=== PATIENT | female | born 1935 | race Caucasian/White ===

== ENCOUNTER 2017-05-13 08:08 | Inpatient (IN) | payer MEDICARE, OTHER ==
[2017-05-13] MEDS ORDERED: Sodium Chloride 0.9% 1000 ML 1,000 ML IV STA (08:29)
[2017-05-13] MEDS ORDERED: Sodium Chloride 0.9% 1000 ML 1,000 ML ONE (08:32)
--- NOTE | 2017-05-13 08:36 | ERPHSYRPT ---
- History of Present Illness Time Seen by Provider: 05/13/17 08:10 Source: family, EMS Physician History: PATIENT WITH HISTORY OF HYPERTENSION, COPD, HYPONATREMIA, WITH ONSET OF LETHARGY , SLURRED SPEECH AND SLOWED RESPONSE TO VERBAL STIMULI. DENIES HEADACHE, BLURRED VISION, FOCAL NUMBNESS, WEAKNESS IN EXTREMITIES. PATIENT IS SLOW TO RESPOND TO VERBAL STIMULI. DENIES EMESIS, CHEST OR ABDOMINAL PAIN. HAS HISTORY OF IRRITABLE BOWEL WITH CRHONIC DIARRHEA. Timing/Duration: today Severity: moderate Character of Deficits: general (difuse) Deficits: decrease ability to walk Baseline/Normal Cognition: poor alertness Current Cognition: poor alertness Associated Symptoms: weakness Allergies/Adverse Reactions: Sulfa (Sulfonamide Antibiotics) Allergy (Mild, Verified 05/13/17 08:37) sulfamethoxazole [From Bactrim] Allergy (Mild, Verified 05/13/17 08:37) tetracycline Allergy (Mild, Verified 05/13/17 08:37) trimethoprim [From Bactrim] Allergy (Mild, Verified 05/13/17 08:37) amoxicillin Allergy (Verified 05/13/17 08:37) Vomiting azithromycin Allergy (Verified 05/13/17 08:37) UNKWON codeine Allergy (Verified 05/13/17 08:37) UNSURE Home Medications: Atorvastatin Calcium [Lipitor] 10 mg PO UD 07/05/16 [History] Buspirone HCl 5 mg [Buspar 5 mg] 5 mg PO BID 07/05/16 [History] Calcium 600 mg PO DAILY 07/05/16 [History] Nifedipine [Procardia Xl] 60 mg PO DAILY 07/05/16 [History] Alprazolam 0.25 mg [xanAX 0.25 MG] 0.25 mg PO DAILY 05/13/17 [History] Multivitamin [Multivitamins] 1 each PO DAILY 05/13/17 [History] Nitrofurantoin Macrocrystal [Nitrofurantoin] 50 mg PO DAILY 05/13/17 [History] Paroxetine HCl 5 mg PO DAILY 05/13/17 [History] Hx Tetanus, Diphtheria Vaccination/Date Given: Yes Hx Influenza Vaccination/Date Given: Yes Hx Pneumococcal Vaccination/Date Given: Yes - Review of Systems Constitutional: No Fever, No Chills Eyes: No Symptoms Ears, Nose, & Throat: No Symptoms Respiratory: No Symptoms, No Cough, No Dyspnea Cardiac: No Symptoms, No Chest Pain, No Edema, No Syncope Abdominal/Gastrointestinal: No Symptoms, No Abdominal Pain, No Nausea, No Vomiting, No Diarrhea Genitourinary Symptoms: No Symptoms, No Dysuria Musculoskeletal: No Symptoms, No Back Pain, No Neck Pain Skin: No Symptoms, No Rash Neurological: Lethargy, No Dizziness, No Focal Weakness, No Sensory Changes Psychological: No Symptoms Endocrine: No Symptoms All Other Systems: Reviewed and Negative - Past Medical History Pertinent Past Medical History: Yes Neurological History: No Pertinent History ENT History: Cataracts Cardiac History: High Cholesterol, Hypertension Respiratory History: COPD, Other Endocrine Medical History: Other Musculoskeletal History: Arthritis GI Medical History: Diverticulosis, Irritable Bowel History: No Pertinent History Psycho-Social History: Anxiety Female Reproductive Disorders: Abnormal Uterine Bleeding, Other Other Medical History: has had cataracts removed, had partial thyroidectomy in 1965 non cancerous and has not had to take meds since, dx with copd but denies sob hx of smoker, has had colonoscopy had diverticulosis, had partial hysterectomy 1985 for heavy bleeding, has area in lung that Dr. Hogan is monitoring and had PET scan to check that area and an area showed up in colon so doing colonoscopy - Past Surgical History Past Surgical History: Yes Neuro Surgical History: No Pertinent History Cardiac: No Pertinent History Respiratory: No Pertinent History Gastrointestinal: Appendectomy Genitourinary: No Pertinent History Musculoskeletal: No Pertinent History Female Surgical History: Hysterectomy Other Surgical History: partial thyroidectomy 1965 noncancerous and has been on no meds since. bladder tuck 2003, colonoscopy 2007, cataracts removed 2007, vericose veins removed 1969. - Social History Smoking Status: Never smoker Exposure to second hand smoke: No Alcohol Use: None Drug Use: none Patient Lives Alone: No Significant Family History: no pertinent family hx - Female History Hx Now: No - Nursing Vital Signs Nursing Vital Signs: Initial Vital Signs Temperature 97.9 F Temperature Source Oral Pulse Rate 78 Respiratory Rate 16 Blood Pressure [] 143/56 Pain Intensity 0 - Jessica Coma Scale Best Eye Response ([place]): (3) open to voice Best Verbal Response (Jessica): (5) oriented Best Motor Response ([place]): (6) obeys commands Jessica Total: 14 - Physical Exam General Appearance: no apparent distress, alert Eye Exam: bilateral eye: normal inspection, PERRL Ears, Nose, Throat Exam: normal ENT inspection Neck Exam: normal inspection, non-tender, supple Respiratory: normal breath sounds Gastrointestinal: soft, normal bowel sounds, other (NONTENDER, NO PALPABLE MASSES) Back Exam: normal inspection Extremity Exam: normal inspection, normal range of motion Peripheral Pulses: carotid (R): 2+, carotid (L): 2+, femoral (R): 2+, femoral (L ): 2+, dorsalis-pedis (R): 2+, dorsalis-pedis (L): 2+ Mental Status: oriented x 3, cooperative, 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 Exam: normal hearing Coordination/Gait: normal finger to nose Motor/Sensory: no motor deficit, no sensory deficit DTR: bicep (R): 2+, bicep (L): 2+, tricep (R): 2+, tricep (L): 2+, knee (R): 2+ , knee (L): 2+ SpO2 Interpretation: normal SpO2: 96 - Course EKG Interpreted by Me: RATE, Sinus Rhythm, Non-specific ST Changes - Radiology Exams Chest X-ray Interpretation: Discussed w/ radiologist (ADVANCED COPD, NO INFILTRATES ) - CT Exams Head CT Interpretation: Discussed w/radiologist (NO ACUTE INTRACRANIAL BLEED, EVIDENCE OF ACUTE TERRITORIAL INFARCTION, BILATERAL MAXILLARY SINUS DISEASE/ SINUSITIS, WHICH IS PROBABLY CHRONIC, THIS IS A BIT MOR PROMINENT ON THE RIGHT THAN LEFT) Ordered Tests: Active Orders 24 hr Category Date Time Status Up With Assistance ROUTINE Activity 05/13/17 09:37 Ordered Admission/Status Order ROUTINE Care 05/13/17 09:37 Ordered Call Admit Doctor for Orders ON ADMISSION Care 05/13/17 09:38 Ordered Shield Installer STAT Care 05/13/17 08:26 Active Code Status Order ROUTINE Care 05/13/17 09:37 Ordered EKG-ER Only STAT Care 05/13/17 08:26 Active IV Care Q6H Care 05/13/17 09:37 Ordered IV Insertion STAT Care 05/13/17 08:26 Active Neuro Checks Q2H Care 05/13/17 09:37 Ordered Telemetry ROUTINE Care 05/13/17 09:37 Ordered Vital Signs Q4H Care 05/13/17 09:37 Ordered Regular Diet Diet 05/13/17 Lunch Ordered CHEST 1 VIEW (PORTABLE) Stat Exams 05/13/17 08:27 Completed HEAD WITHOUT CONTRAST [CT] Stat Exams 05/13/17 08:32 Completed MRI BRAIN W & W/O CONTRAST [MRI] Stat Exams 05/13/17 09:40 Ordered BLOOD CULTURE Stat Lab 05/13/17 09:10 Received CBC W DIFF Stat Lab 05/13/17 08:41 Completed CMP Stat Lab 05/13/17 08:41 Completed TROPONIN Q3H Lab 05/13/17 08:41 Completed TROPONIN Q3H Lab 05/13/17 11:30 Ordered TROPONIN Q3H Lab 05/13/17 14:30 Ordered TROPONIN Q3H Lab 05/13/17 17:30 Ordered TROPONIN Q3H Lab 05/13/17 20:30 Ordered UA W/ MICROSCOPIC Stat Lab 05/13/17 08:41 Completed Transfer Order Routine Transfer 05/13/17 09:36 Ordered Medication Summary Generic Name Dose Route Start Last Admin Trade Name Freq PRN Reason Stop Dose Admin Acetaminophen 650 mg 05/13/17 09:40 Tylenol 325 Mg PO 06/12/17 09:39 Q4H PRN PRN PAIN AND/OR FEVER Buspirone HCl 5 mg 05/13/17 10:00 Buspar 5 Mg PO 06/12/17 09:59 BID ANIBAL Sodium Chloride 1,000 mls @ 200 mls/hr 05/13/17 08:29 05/13/17 08:35 Sodium Chloride 0.9% 1000 Ml IV 05/13/17 13:28 200 mls/hr .Q5H STA Administration Sodium Chloride 1,000 mls @ 50 mls/hr 05/13/17 09:45 Sodium Chloride 0.9% 1000 Ml IV 06/12/17 09:44 .Q20H ANIBAL Levofloxacin/Dextrose 500 mg in 100 mls @ 100 mls/hr 05/13/17 09:42 Levofloxacin 500mg/100ml D5w IV 05/13/17 10:41 STAT STA Nifedipine 60 mg 05/13/17 10:00 Adalat Cc 30 Mg Tablet PO 06/12/17 09:59 DAILY ANIBAL Ondansetron HCl 4 mg 05/13/17 09:43 Zofran 4 Mg/2 Ml Vial IV 06/12/17 09:42 Q4H PRN PRN NAUSEA Discontinued Medications Generic Name Dose Route Start Last Admin Trade Name Freq PRN Reason Stop Dose Admin Sodium Chloride Confirm 05/13/17 08:32 Sodium Chloride 0.9% 1000 Ml Administered 05/13/17 08:33 Dose 1,000 mls @ .[facility] Lab/Rad Data: Laboratory Result Diagrams 05/13/17 08:41 05/13/17 08:41 Laboratory Results 05/13/17 05/13/17 05/13/17 Range/Units 08:41 08:41 08:41 WBC (4.0-10.5) K/mm3 RBC (4.1-5.4) M/mm3 Hgb (12.0-16.0) gm/dl Hct (35-47) % MCV (78-100) fl MCH (26-32) pg MCHC (32-36) g/dl RDW (11.5-14.0) % Plt Count (150-450) K/mm3 MPV (6-9.5) fl Gran % (36.0-66.0) % Lymphocytes % (24.0-44.0) % Monocytes % (0.0-12.0) % Eosinophils % (0.00-5.0) % Basophils % (0.0-0.4) % Basophils # (0-0.4) Sodium 136 (136-145) mEq/L Potassium 4.0 (3.5-5.1) mEq/L Chloride 100 (98-107) mEq/L Carbon Dioxide 25.9 (21-32) mEq/L Anion Gap 13.8 (5-15) MEQ/L BUN 21 H (9-20) mg/dL Creatinine 0.90 (0.55-1.30) mg/dl Estimated GFR > 60 ML/MIN Glucose 106 (70-110) MG/DL Calcium 9.2 (8.5-10.1) mg/dL Total Bilirubin 0.40 (0.2-1.0) mg/dL AST 20 (15-37) U/L ALT 22 (12-78) U/L Alkaline Phosphatase 67 (46-116) U/L Troponin I < 0.017 (0.000-0.056) ng/ml Serum Total Protein 7.1 (6.4-8.2) gm/dL Albumin 3.6 (3.4-5.0) g/dL Ur Collection Type VOID Urine Color LT.YELLOW (YELLOW) Urine Appearance CLEAR (CLEAR) Urine pH 8.0 (5-6) Ur Specific [place] 1.010 (1.005-1.025) Urine Protein NEGATIVE (Negative) Urine Ketones NEGATIVE (NEGATIVE) Urine Blood 5-10 (0-5) Carlos/ul Urine Nitrite NEGATIVE (NEGATIVE) Urine Bilirubin NEGATIVE (NEGATIVE) Urine Urobilinogen NORMAL (0-1) mg/dL Ur Leukocyte Esterase NEGATIVE (NEGATIVE) Urine Microscopic RBC 0-2 (0-2) /HPF Ur Epithelial Cells RARE (FEW) /HPF Urine Bacteria FEW (NEGATIVE) /HPF Urine Glucose NEGATIVE (NEGATIVE) mg/dL Specimen Received 05/13/17 0840 05/13/17 Range/Units 08:41 WBC 5.3 (4.0-10.5) K/mm3 RBC 4.76 (4.1-5.4) M/mm3 Hgb 12.8 (12.0-16.0) gm/dl Hct 38.5 (35-47) % MCV 80.9 (78-100) fl MCH 26.9 (26-32) pg MCHC 33.2 (32-36) g/dl RDW 14.8 H (11.5-14.0) % Plt Count 230 (150-450) K/mm3 MPV 9.2 (6-9.5) fl Gran % 61.6 (36.0-66.0) % Lymphocytes % 24.7 (24.0-44.0) % Monocytes % 9.3 (0.0-12.0) % Eosinophils % 3.8 (0.00-5.0) % Basophils % 0.6 (0.0-0.4) % Basophils # 0.03 (0-0.4) Sodium (136-145) mEq/L Potassium (3.5-5.1) mEq/L Chloride (98-107) mEq/L Carbon Dioxide (21-32) mEq/L Anion Gap (5-15) MEQ/L BUN (9-20) mg/dL Creatinine (0.55-1.30) mg/dl Estimated GFR ML/MIN Glucose (70-110) MG/DL Calcium (8.5-10.1) mg/dL Total Bilirubin (0.2-1.0) mg/dL AST (15-37) U/L ALT (12-78) U/L Alkaline Phosphatase (46-116) U/L Troponin I (0.000-0.056) ng/ml Serum Total Protein (6.4-8.2) gm/dL Albumin (3.4-5.0) g/dL Ur Collection Type Urine Color (YELLOW) Urine Appearance (CLEAR) Urine pH (5-6) Ur Specific [place] (1.005-1.025) Urine Protein (Negative) Urine Ketones (NEGATIVE) Urine Blood (0-5) Carlos/ul Urine Nitrite (NEGATIVE) Urine Bilirubin (NEGATIVE) Urine Urobilinogen (0-1) mg/dL Ur Leukocyte Esterase (NEGATIVE) Urine Microscopic RBC (0-2) /HPF Ur Epithelial Cells (FEW) /HPF Urine Bacteria (NEGATIVE) /HPF Urine Glucose (NEGATIVE) mg/dL Specimen Received - Progress Progress Note: 05/13/17 09:33 PATIENT GIVEN IV LEVAQUIN 500MG Discussed with Dr.: Alford (DISCUSSED WITH DR ALFORD AT 0920 FOR ADMISSION) - Departure Time of Disposition: 09:45 Departure Disposition: In-patient Admission Clinical Impression: ALTERED MENTAL STATUS, ACUTE MAXILLARY SINUSITIS Condition: Stable Critical Care Time: No Referrals: HUNTER ALFORD [Primary Care Provider] -
[2017-05-13 08:48] LABS: BASOPHIL % 0.6 % (0.0-0.4); Eosinophil % 3.8 % (0.00-5.0); Granulocytes % 61.6 % (36.0-66.0); Lymphocytes % 24.7 % (24.0-44.0); Mean Cell Volume 80.9 fl (78-100); Mean Corpuscular Hemoglobin 26.9 pg (26-32); Mean Platelet Volume 9.2 fl (6-9.5); Monocytes % 9.3 % (0.0-12.0); Platelet Count 230 K/mm3 (150-450); Red Blood Count 4.76 M/mm3 (4.1-5.4); Red Cell Distribution Width 14.8 % (11.5-14.0); White Blood Count 5.3 K/mm3 (4.0-10.5)
[2017-05-13 08:51] LABS: Bilirubin NEGATIVE (NEGATIVE); COMPLETE URINE MICROSCOPIC? YES; Collection Type VOID; Glucose NEGATIVE (NEGATIVE); Leukocyte Esterase NEGATIVE (NEGATIVE)
[2017-05-13 09:07] LABS: ALBUMIN 3.6 g/dL (3.4-5.0); ALKALINE PHOSPHATASE 67 U/L (46-116); ANION GAP 13.8 MEQ/L (5-15); BLOOD UREA NITROGEN 21 mg/dL (9-20); CHLORIDE 100 mEq/L (98-107); Carbon Dioxide 25.9 mEq/L (21-32); Glucose 106 MG/DL (70-110); SGOT/AST 20 U/L (15-37); SGPT/ALT 22 U/L (12-78); SODIUM 136 mEq/L (136-145); Total Protein 7.1 gm/dL (6.4-8.2)
[2017-05-13 09:09] LABS: ADD URINE CULTURE? NO (NO); Bacteria FEW /HPF (NEGATIVE); Epithelial Cells RARE /HPF (FEW)
--- NOTE | 2017-05-13 09:14 | XRAY ---
Exam: CT of the head without IV contrast from 05/13/2017. Comparison: CT of the head without IV contrast from 07/05/2016. Indication: Confusion, slurred speech. Technique: Non-IV contrast axial images were obtained through the brain. Reconstructed coronal and sagittal images were created and reviewed. Findings: Mild generalized global atrophy is again seen, not inappropriate for the patient's age. I see no acute intracranial bleed or abnormal extra-axial fluid collection. Subtle mild bilateral periventricular and subcortical white matter changes are seen suggestive of mild chronic microvascular disease. I see no evidence of an acute territorial infarction. Some atherosclerotic vascular disease is seen within both carotid siphons. The calvarium of the skull appears intact. The mastoid air cells appear normal. Mild lobular soft tissue density is seen within the posterior right maxillary sinus. There is also a new minimal amount of mucosal thickening or even fluid within the posterior left maxillary sinus on axial image #1. Subtle mucosal thickening is seen within the left side of the sphenoid sinus. This latter finding is improved from 07/05/2016. The remainder of the visualized paranasal sinuses is clear. There is mild deviation of the mid aspect of the nasal septum toward the left. Impression: 1. Mild generalized global atrophy and subtle bilateral periventricular and subcortical chronic microvascular disease are again seen representing no significant change from 07/05/2016. 2. No acute intracranial bleed, evidence of acute territorial infarction, or other acute intracranial process is seen. 3. Bilateral maxillary sinus disease/sinusitis, which is probably chronic. This is a bit more prominent on the right than left. Prior significant mucosal thickening within the left side of the sphenoid sinus on 07/05/2016 has decreased significantly.
--- NOTE | 2017-05-13 09:15 | XRAY ---
Exam: AP semi-upright chest film from 05/13/2017. Comparison: Two-view chest from 07/14/2016. Indication: Dyspnea. Findings: EKG leads are is noted in place. The transverse heart size appears normal. There is some mild chronic central bronchial wall thickening within the kae. No vascular congestion is seen. There is hyperinflation of the lungs consistent with COPD. Costochondral calcification is seen bilaterally. I see no infiltrates, pneumothorax, or pleural fluid. No acute osseous process is seen. Impression: 1. Advanced COPD representing no change. 2. Prior focal consolidation behind the heart at the medial left lung base on 07/14/2016 has resolved. Currently, no infiltrates or other acute cardiopulmonary process is seen.
[2017-05-13] MEDS ORDERED: TYLENOL 325 MG PO PRN (09:40)
[2017-05-13] MEDS ORDERED: Levofloxacin 500MG/100ML D5W 500 MG/100 ML BAG IV STA (09:42)
[2017-05-13] MEDS ORDERED: Zofran 4 MG/2 ML VIAL IV PRN (09:43)
[2017-05-13] MEDS: Sodium Chloride 0.9% 1000 ML 1,000 ML IV SCH (10:15)
[2017-05-13] MEDS ORDERED: NORCO 5/325 MG PO PRN (11:38)
[2017-05-13] MEDS ORDERED: PROVENTIL Solution 2.5 MG/0.5 ML IH PRN (11:38)
[2017-05-13] MEDS ORDERED: IBUPROFEN 200 MG PO PRN (11:38)
[2017-05-13] MEDS ORDERED: MOTRIN 200 MG PO PRN (11:42)
--- NOTE | 2017-05-13 12:24 | XRAY ---
Exam: MRI of the brain without and with 9 ML's IV Magnevist contrast from 05/13/2017. Comparison: CT of the head without IV contrast from 05/13/2017. Indication: Confusion, slurred speech. Technique: Multiplanar, multisequence MR imaging of the brain was obtained without and with IV contrast per routine. Findings: The diffusion weighted images reveal no focal areas of restricted diffusion to suggest an acute focal infarct. The lateral and third ventricles are mildly prominent representing no change. There is also prominence of the cortical sulci and basilar cisterns suggesting some mild generalized global atrophy in this octogenarian. Mild scattered areas of increased signal are seen within the periventricular and subcortical white matter on the T2 FLAIR images which I believe reflects chronic small vessel ischemic disease. I see no evidence of acute intracranial bleed or abnormal extra-axial fluid collection. No focal mass effect or midline shift is seen. The flow voids within the major vessels about the [place] as well as the basilar artery appeared grossly unremarkable. The seventh and eighth cranial nerve root complexes appear unremarkable. No significant abnormality of the brainstem is seen. The midline T1-weighted images reveal an unremarkable appearance of the sella. No cerebellar ectopia is seen. I see no enhancing masses on the post-IV contrast T1-weighted images. Some peripheral mucosal thickening is seen within the posterior inferior aspect of both maxillary sinuses, right greater than left. There also appears to be some mild lobular increased signal intensity on the T2-weighted images within the inferior aspect of the right maxillary sinus which probably represents retention cysts. Impression: 1. I see no focal areas of restricted diffusion on the diffusion-weighted images to suggest an acute infarct. 2. No intracranial bleed or enhancing intracranial bleed mass lesion is seen. 3. Mild generalized global atrophy and chronic microvascular ischemia, not inappropriate for the patient's age. 4. Mild chronic bilateral maxillary sinus disease, as discussed above.
[2017-05-13] MEDS: Adalat CC 30 MG TABLET PO SCH (13:51)
[2017-05-13] MEDS: Paxil 20 MG PO SCH (13:51)
[2017-05-13] MEDS: Macrobid 100MG Capsule PO SCH (13:52)
[2017-05-13] MEDS: BUSPAR 5 MG PO SCH ×2 (13:52→22:03)
--- NOTE | 2017-05-13 18:55 | PCM.HP ---
History of Present Illness - Chief Complaint Chief Complaint: Altered Mental Status History of Present Illness: is a 81 year old female pt of mine from [facility] with anxiety who had an episode this morning of decreased responsiveness. She describes it as being very tired and just felt like she needed to lay down, then she was having a hard time making her extremities move and a hard time talking. Her noted she was slow to respond. She asked him to call the nurse and he did ( assisted living). The ambulance was called; as she was being loaded in, her son said something to her and she would not respond to him (she denies that this was willful). In the ER, CT brain was negative aside from some frontal sinusitis. Labs were basically normal, no elevated WBC, and no hyponatremia (which is a somewhat chronic condition for her). She does have some marked anxiety, and takes a small amount of xanax regularly at home (buspar and SSRIs have been tried; I think there was some improvement with the SSRI but we thought it caused the hyponatremia and it was discontinued) . Within the past few years her and her have moved into assisted living , and now they are together all the time and this is stressful; they argue. She states they are doing better in this regard. I know that recently her son had a fairly zaragoza discussion with her about some "OCD tendencies" about doing the laundry. Currently she states she is feeling OK. - Review of Systems Ears, Nose, & Throat: Other (no hearing changes noted) Respiratory: Short Of Breath (intermittently; COPD. wears O2 intermittently at home) Abdominal/Gastrointestinal: Diarrhea (alternates constipation and diarrhea for years), Constipation Genitourinary Symptoms: Other (frequent UTIs; none currently. Takes prophylactic antibiotic) Neurological: Focal Weakness, Speech Changes Psychological: Anxiety All Other Systems: Reviewed and Negative Medications & Allergies Home Medications: Home Medication List Atorvastatin Calcium [Lipitor] 10 mg PO UD 07/05/16 [History Confirmed 05/13/17] Buspirone HCl 5 mg [Buspar 5 mg] 5 mg PO BID 07/05/16 [History Confirmed 05/13/17] Calcium 600 mg PO DAILY 07/05/16 [History Confirmed 05/13/17] Nifedipine [Procardia Xl] 60 mg PO DAILY 07/05/16 [History Confirmed 05/13/17] Albuterol 2.5 mg/0.5 ml [PROVENTIL Solution 2.5 MG/0.5 ML] 2.5 mg IH Q4HPRN PRN 05/13/17 [History Confirmed 05/13/17] Alprazolam 0.25 mg [xanAX 0.25 MG] 0.25 mg PO DAILY 05/13/17 [History Confirmed 05/13/17] Alprazolam 0.25 mg [xanAX 0.25 MG] 0.25 mg PO TID PRN PRN 05/13/17 [ History Confirmed 05/13/17] Aspirin/Acetaminophen/Caffeine [Excedrin Extra Strength Caplet] 1 each PO Q8HPRN PRN 05/13/17 [History Confirmed 05/13/17] Hydrocodone Bit/Acetaminophen [[place] 5-325 Tablet] 0.5 - 1 tab PO DAILY PRN PRN 05/13/17 [History Confirmed 05/13/17] Ibuprofen [Advil] 200 mg PO [id number] PRN 05/13/17 [History Confirmed 05/13/17] Multivitamin [Multivitamins] 1 each PO DAILY 05/13/17 [History Confirmed ] Nitrofurantoin Macrocrystal [Nitrofurantoin] 50 mg PO DAILY 05/13/17 [History Confirmed 05/13/17] Paroxetine HCl 5 mg PO DAILY 05/13/17 [History Confirmed 05/13/17] Allergies/Adverse Reactions: Allergies Allergy/AdvReac Type Severity Reaction Status Date / Time Sulfa (Sulfonamide Allergy Mild Verified 05/13/17 08:37 Antibiotics) sulfamethoxazole Allergy Mild Verified 05/13/17 08:37 [From Bactrim] tetracycline Allergy Mild Verified 05/13/17 08:37 trimethoprim [From Bactrim] Allergy Mild Verified 05/13/17 08:37 amoxicillin Allergy Vomiting Verified 05/13/17 08:37 azithromycin Allergy UNKWON Verified 05/13/17 08:37 codeine Allergy UNSURE Verified 05/13/17 08:37 - Past Medical History Past Medical History: Yes Neurological History: No Pertinent History ENT History: Cataracts Cardiac History: High Cholesterol, Hypertension Respiratory History: COPD, Other Endocrine Medical History: Other Musculoskelatal History: Arthritis GI Medical History: Diverticulosis, Irritable Bowel History: No Pertinent History Pyscho-Social History: Anxiety Reproductive Disorders: Abnormal Uterine Bleeding, Other Comment: has had cataracts removed, had partial thyroidectomy in 1965 non cancerous and has not had to take meds since, dx with copd but denies sob hx of smoker, has had colonoscopy had diverticulosis, had partial hysterectomy 1985 for heavy bleeding, has area in lung that Dr. Hogan is monitoring and had PET scan to check that area and an area showed up in colon so doing colonoscopy - Female History Are you now?: No - Past Surgical History Past Surgical History: Yes Neuro Surgical History: No Pertinent History Cardiac History: No Pertinent History Respiratory Surgery: No Pertinent History GI Surgical History: Appendectomy Genitourinary Surgical Hx: No Pertinent History Musculskeletal Surgical Hx: No Pertinent History Female Surgical History: Hysterectomy Other Surgical History: partial thyroidectomy 1965 noncancerous and has been on no meds since. bladder tuck 2003, colonoscopy 2007, cataracts removed 2007, vericose veins removed 1969. - Social History Smoking Status: Never smoker Exposure to second hand smoke: No Alcohol: None Drug Use: none Significant Family History: no pertinent family hx - Physical Exam Vital Signs: Vital Signs - 24 hr Temp Pulse Resp BP Pulse Ox 05/13/17 16:00 98.2 F 79 18 185/84 92 L 05/13/17 12:55 88 16 95 05/13/17 12:02 98.6 F 80 17 151/72 91 L 05/13/17 09:55 82 151/72 05/13/17 09:44 96 05/13/17 09:15 78 16 143/56 98 05/13/17 08:09 97.9 F 98 H 16 158/57 92 L General Appearance: no apparent distress, anxiety Neurologic Exam: alert, oriented x 3, cooperative, abnormal specialist field engineer II-XII (nl exam aside from decreased CN VIII on the L), other (circular knife machine cutter 5/5 bilat. Proximal and distal muscle strength in LE 5/5 bilat.) Eye Exam: eyes nml inspection Ears, Nose, Throat Exam: moist mucous membranes Neck Exam: normal inspection, non-tender, No mass, No lymphadenopathy Respiratory Exam: crackles/rales (in L base as usual), other (good air exchange) , No rhonchi, No wheezing Cardiovascular Exam: regular rate/rhythm, normal heart sounds, No murmur Gastrointestinal/Abdomen Exam: soft, normal bowel sounds, No tenderness, No distention, No mass, No guarding, No rebound Back Exam: normal inspection Extremity Exam: No pedal edema, No swelling Skin Exam: normal color, warm, dry Results - Labs Lab/Micro Results: Lab Results-Last 24 Hours 05/13/17 05/13/17 05/13/17 Range/Units 11:45 14:45 17:45 Troponin I < 0.017 < 0.017 < 0.017 (0.000-0.056) ng/ml - Radiology Impressions Radiology Exams & Impressions: Radiology Procedures Category Date Time Status MRI BRAIN W & W/O CONTRAST [MRI] Stat Exams 05/13/17 10:14 Completed - Other Procedures and Tests Respiratory Therapy 05/13/17 12:55 Respiratory Nebulizer UD 05/13/17 12:57 Oxygen NASAL CANNULA 2 lpm Assessment/Plan (1) Decreased responsiveness Current Visit: Yes Status: Resolved Assessment & Plan: Unsure the etiology. MRI brain neg aside from age-related changes and sinusitis. She has complained of more fatigue; will do rheumatologic labs including BRITTNEY, RF, RPR, CRP, ESR, C3. Will get neurology consult. Could certainly be conversion disorder with her degree of anxiety. I fear that knowing this would make her more anxious. Code(s): R41.89 - OTH SYMPTOMS AND SIGNS W COGNITIVE FUNCTIONS AND AWARENESS (2) Sinusitis Current Visit: Yes Status: Acute Qualifiers: Sinusitis location: frontal Chronicity: acute Recurrence: non-recurrent Qualified Code(s): J01.10 - Acute frontal sinusitis, unspecified Assessment & Plan: treating with IV levaquin. Code(s): J32.9 - CHRONIC SINUSITIS, UNSPECIFIED (3) Anxiety Current Visit: No Status: Chronic Assessment & Plan: home meds prn Code(s): F41.9 - ANXIETY DISORDER, UNSPECIFIED (4) Constipation Current Visit: No Status: Chronic Assessment & Plan: currently had a hard stool today. Very concerned about her bowel movements. Would just observe. Code(s): K59.00 - CONSTIPATION, UNSPECIFIED (5) Hypertension Current Visit: No Status: Chronic Qualifiers: Hypertension type: essential hypertension Qualified Code(s): I10 - Essential (primary) hypertension Assessment & Plan: will add prn med Code(s): I10 - ESSENTIAL (PRIMARY) HYPERTENSION
[2017-05-13] MEDS ORDERED: APRESOLINE 20 MG/ML INJ IV PRN (19:02)
[2017-05-13] MEDS: xanAX 0.25 MG PO PRN (22:04)
[2017-05-14 08:11] VITALS: PULSE 87
[2017-05-14] MEDS: Adalat CC 30 MG TABLET PO SCH (08:22)
[2017-05-14] MEDS: BUSPAR 5 MG PO SCH (08:22)
[2017-05-14] MEDS: Macrobid 100MG Capsule PO SCH (08:22)
[2017-05-14] MEDS: Paxil 20 MG PO SCH (08:22)
[2017-05-14] MEDS: xanAX 0.25 MG PO PRN (09:47)
[2017-05-14] MEDS: Sodium Chloride 0.9% 1000 ML 1,000 ML IV SCH (09:50)
[2017-05-14] MEDS ORDERED: xanAX 0.25 MG PO SCH ×2 (10:00→22:00)
[2017-05-14] MEDS ORDERED: PAROXETINE HCL 5 MG PO SCH (10:00)
--- NOTE | 2017-05-14 10:39 | PCM.DCORD ---
- Discharge Discharge Date: 05/14/17 Disposition: Home, Self-Care Condition: Stable Prescriptions: Continue Nifedipine [Procardia Xl] 60 mg PO DAILY Calcium 600 mg PO DAILY Buspirone HCl 5 mg [Buspar 5 mg] 5 mg PO BID Atorvastatin Calcium [Lipitor] 10 mg PO UD Alprazolam 0.25 mg [xanAX 0.25 MG] 0.25 mg PO TID PRN PRN PRN Reason: Anxiety Multivitamin [Multivitamins] 1 each PO DAILY Nitrofurantoin Macrocrystal [Nitrofurantoin] 50 mg PO DAILY Ibuprofen [Advil] 200 mg PO [id number] PRN PRN Reason: Mild To Moderate Pain Aspirin/Acetaminophen/Caffeine [Excedrin Extra Strength Caplet] 1 each PO Q8HPRN PRN PRN Reason: Headache Albuterol 2.5 mg/0.5 ml [PROVENTIL Solution 2.5 MG/0.5 ML] 2.5 mg IH Q4HPRN PRN PRN Reason: Shortness Of Breath/Wheezing Alprazolam 0.25 mg [xanAX 0.25 MG] 0.25 mg PO DAILY Changed Paroxetine HCl 10 mg PO DAILY #30 tablet Discontinued Hydrocodone Bit/Acetaminophen [[place] 5-325 Tablet] 0.5 - 1 tab PO DAILY PRN PRN PRN Reason: Moderate To Severe Pain Follow up with: HUNTER POOL [Primary Care Provider] -
--- NOTE | 2017-05-14 11:34 | DS ---
DISCHARGE DIAGNOSES: 1) ALTERED MENTAL STATUS. 2) ANXIETY. 3) LEG PAIN. 4) GENERALIZED WEAKNESS. DISCHARGE PHYSICAL EXAMINATION: VITALS: Temperature current 98.3F, temperature max 98.5F, heart rate 65 to 87, respiratory rate 16 to 18, blood pressure 118 to 151 over 57 to 68. Oxygen saturation 92 to 93% on room air. GENERAL: The patient is lying in bed a pleasant talkative lady. She is alert and oriented x3 but cannot say who the manager nuclear is. Her son, [id number] and are at the bedside. NEURO: Cranial nerves II-XII were intact. Strength is 5/5 in all four extremities. HEART: Regular rate and rhythm. No murmurs, gallops or rubs are appreciated. CHEST: Clear to auscultation bilaterally. No crackles or wheezes. ABDOMEN: Soft, nontender, nondistended with normal bowel sounds. EXTREMITIES: No clubbing, cyanosis or edema. SKIN: Warm, dry and intact. HOSPITAL COURSE: 1) ALTERED MENTAL STATUS: The patient was kept overnight in the hospital. She had a head CT and MRI of her brain done neither of which showed any acute abnormalities. The tele-neurologist was consulted and spoke to me personally and did not feel that she needed any further imaging although as I explained to the family his written report did mention some other studies that could be done but again he did not feel like these were stroke-type symptoms with the generalized weakness. He did also mentioned that she seemed very anxious. This was discussed at length with the family and they agreed to her going home at this time and will continue to work with her anxiety. 2) ANXIETY: She is on Paxil 5 mg p.o. daily. Her family thinks this is a fairly new medication. I have increased this to 10 mg p.o. daily. She also has Xanax ordered as needed and buspirone ordered as needed. Will continue with those and have her follow up with her primary care doctor, Dr. Alford who saw her on the day of admission. 3) LEG PAIN: The etiology of this is uncertain. We did discuss possibly having home health care come in with physical therapy but the thought of having multiple things going on within a day makes her very anxious and so we are going to wait on this time. 4) GENERALIZED WEAKNESS: I have ordered TSH. Her hemoglobin was normal on admission. I will also check vitamin B12 level. I have also ordered 25-hydroxyvitamin D. DISCHARGE MEDICATIONS: She is to resume all of her home medications except they note she does not take the hydrocodone anymore so I discontinued this and I have increased the Paxil from 5 mg to daily to 10 mg daily. FOLLOW UP: Will have follow up with primary care doctor in one to two weeks or sooner if she is having any problems. DISPOSITION: The patient was discharged to home in fair condition.
[2017-05-14 13:17] VITALS: BP 127/58; O2SAT 91
[2017-05-14] MEDS ORDERED: Zocor 10MG PO SCH (20:00)
[2017-05-14] MEDS ORDERED: NON-FORMULARY ITEM (Atorvastatin Calcium [Lipitor] 10 MG) PO SCH (20:00)
[2017-05-15 11:52] LABS: RPR with Quantitation Non Reactive (Non Reactive)
[2017-05-15 16:13] LABS: ANA IgG Titer Not Indicated (Not Indicated)
== END 2017-05-14 12:57 | disposition home or self-care (01) | DRG 948 ==
LOC: ED 08:08 → MED SURG 10:07
PROVIDERS: ADMIT Family Medicine; ATTEND Family Medicine
DX: R41.82 Altered mental status, unspecified (principal); F41.9 Anxiety disorder, unspecified; M79.606 Pain in leg, unspecified; R53.1 Weakness; I10 Essential (primary) hypertension; J44.9 Chronic obstructive pulmonary disease, unspecified; Z99.81 Dependence on supplemental oxygen; Z87.440 Personal history of urinary (tract) infections; R41.89 Other symptoms and signs involving cognitive functions and awareness; J32.9 Chronic sinusitis, unspecified; K59.00 Constipation, unspecified; Z79.899 Other long term (current) drug therapy
CPT/HCPCS: 36415; 70450; 70553; 71010; 80053; 81000; 82306; 82550; 82607; 83921; 84443; 84484; 85025; 85652; 86038; 86140; 86160; 86430; 86592; 87040; 93005; 93041; 94760; 96360; 96361; 99285; J1956; A9270-GY

== ENCOUNTER 2017-07-30 13:07 | Inpatient (IN) | payer MEDICARE, OTHER ==
[2017-07-30 14:46] LABS: Collection Type CLEAN CATCH; Glucose NEGATIVE (NEGATIVE); Leukocyte Esterase TRACE (NEGATIVE)
[2017-07-30 14:47] LABS: ADD URINE CULTURE? YES (NO); Bacteria FEW /HPF (NEGATIVE); Bilirubin NEGATIVE (NEGATIVE); COMPLETE URINE MICROSCOPIC? YES; Epithelial Cells MANY /HPF (FEW)
[2017-07-30] MEDS: Sodium Chloride 0.9% 1000 ML 1,000 ML IV SCH (15:00)
--- NOTE | 2017-07-30 15:01 | XRAY ---
Exam: CT of the head without IV contrast from 07/30/2017. CTDI: 51.17 Comparison: CT of the head without IV contrast from 05/13/2017. Indication: Patient fall with head injury and neck stiffness. Technique: Non-IV contrast axial images were obtained through the brain. Reconstructed coronal and sagittal images were created and reviewed. Findings: The lateral and third ventricles are prominent, likely due to atrophy. No focal mass effect or midline shift is seen. No acute intracranial bleed is seen. Bilateral periventricular and subcortical white matter changes are seen consistent with mild chronic microvascular disease. An acute territorial infarction within a major cerebral or cerebellar artery distribution is not seen. There is prominence of the cortical sulci and basilar cisterns consistent with generalized atrophy. This is similar to the prior study. The calvarium of the skull reveals no fracture. Moderate globular soft tissue density is seen within the posterior aspect of the right maxillary sinus consistent with mucosal thickening and perhaps retention cysts. In addition, I cannot completely exclude the possibility of a minimal amount of fluid at the posterior margin of the maxillary sinuses. These findings are relatively similar to 05/13/2017. There is mild deviation of the nasal septum toward the left. Mild mucosal thickening is seen within the left side of the sphenoid sinus. The mastoid air cells appear unremarkable. Impression: 1. I see no acute intracranial bleed or other acute intracranial process. There is no evidence of an acute or subacute territorial infarction within a major cerebral or cerebellar artery distribution. 2. Generalized atrophy and mild chronic small vessel ischemic disease are seen representing no change from 05/13/2017. 3. Chronic sinus disease/sinusitis, as discussed above. This appears similar to 05/13/2017. 4. No fracture of the calvarium of the skull is seen.
--- NOTE | 2017-07-30 15:21 | XRAY ---
Exam: CT of the cervical spine without IV contrast from 07/30/2017. CTDI: 49.71 Comparison: CT of the cervical spine without IV contrast from 07/05/2016. Indication: Patient fall, injury to head and neck complains of neck stiffness. Technique: Non-IV contrast axial images were obtained through the cervical spine. Reconstructed coronal and sagittal images were created and reviewed. Findings: I see no evidence of acute cervical spine fracture, AP traumatic subluxation, or prevertebral soft tissue swelling. Degenerative changes seen at the preodontoid space. There is moderate multilevel degenerative disc disease at C3-C4, C4-C5, C5-C6, and C6-C7. There is some straightening of the upper cervical spine which may be due to spasm. I see no evidence of jumped facets. A nuchal ligament calcification is seen posterior to the C5 spinous process representing no change. Moderate to marked degenerative changes are also seen within the uncovertebral joints and facet joints. No cervical ribs are seen. Posterior vertebral endplate spurring causes slight compromise upon the AP dimension of the spinal sac at C3-C4 and C5-C6 on the sagittal images. This is unchanged. Scattered neural foraminal narrowing throughout the cervical spine is due to the osteoarthritic spurring. The visualized lung apices reveal minimal scarring representing no change. Impression: 1. No acute cervical spine fracture or AP traumatic subluxation is seen. 2. Moderate to marked multilevel degenerative disc disease and degenerative joint disease are noted throughout the cervical spine representing no significant change from 07/05/2016.
--- NOTE | 2017-07-30 15:23 | ERPHSYRPT ---
- History of Present Illness Time Seen by Provider: 07/30/17 13:39 Source: patient, family (daughter) Exam Limitations: clinical condition (dementia) Patient Subjective Stated Complaint: PT DAUGHTER STATES PT HAS HAD FREQUENT FALLS RECENTLY, WITHIN THE LAST WEEK SPECIFICALLY. PT STATES SHE FELL YESTERDAY AND BRUISED HER FACE AND FOREHEAD. PT STATES SHE FELL TODAY AND DID NOT REALIZE IT. PT LIVES AT [facility]. DAUGHTER STATES THE PT HAS BECOME INCREASINGLY WEAK AND HAS TROUBLE WITH MOTOR SKILLS. REPORTS SHE CAN FOLLOW SIMPLE COMMANDS BUT HAS ISSUES WITH INDEPENDENT DECISION MAKING AND COORDINATION. REPORTS PT HAS SEEN DR. POOL AND DR. PANIAGUA THIS WEEK FOR THE SAME ISSUES. DAUGHTER STATES DR. PANIAGUA SPOKE WITH THEM ABOUT HER BP DROPPING WHEN STANDING. DAUGHTER REPORTS SHE IS ALSO FINISHING UP ABX FOR A UTI. PT DENIES PAIN. Triage Nursing Assessment: PT IS ALERT TO PERSON AND PLACE, PLEASANT AND TALKATIVE WITH STAFF. PUPILS ARE PERRL. WALKED TO TREATMENT ROOM WITH SHUFFLED GAIT. RESPS ARE EASY AND NON LABORED, RADIAL PULSES ARE STRONG AND EQUAL, SLIGHT SWELLING NOTED TO THE BILAT LOWER EXTREMITIES. PEDAL PULSES STRONG AND EQUAL. BRUISING AND SMALL HEMATOMA NOTED TO THE BRIDGE OF THE NOSE. SCATTERED BRUISING TO THE FOREHEAD, LIPS AND CHIN. BRUISING ALSO NOTED TO THE BILAT KNEES WELL THE LEFT THIGH/HIP. ALL SKIN IS INTACT. SENSATION IS INTACT TO ALL EXTREMITIES, DENIES ANY NUMBNESS OR TINGLING. Physician History: patient has been falling at assisted living on a daily basis for week; increased weakness, increased dementia; hx of UTI being treated; bruises to knees and face; ? LOC; patient doesnt know; Occurred: this morning (again), yesterday (also), last week (frequently) Reason for Fall: unknown Injuries/Pain Location: head, face, neck, lower extremity (bilateral knees) Loss of Consciousness: unsure Quality: aching Severity of Pain-Max: moderate Severity of Pain-Current: mild Modifying Factors: Improves With: cold therapy, immobilization (helps), movement (aggravates) Associated Symptoms (Fall): confusion, extremity injury (knees), trouble walking Allergies/Adverse Reactions: Sulfa (Sulfonamide Antibiotics) Allergy (Mild, Verified 07/30/17 13:34) sulfamethoxazole [From Bactrim] Allergy (Mild, Verified 07/30/17 13:34) tetracycline Allergy (Mild, Verified 07/30/17 13:34) trimethoprim [From Bactrim] Allergy (Mild, Verified 07/30/17 13:34) amoxicillin Allergy (Verified 07/30/17 13:34) Vomiting azithromycin Allergy (Verified 07/30/17 13:34) UNKWON codeine Allergy (Verified 07/30/17 13:34) UNSURE Home Medications: Acamprosate Calcium 333 mg PO DAILY 07/30/17 [History] Albuterol/Ipratropium 3ml Neb* [DUONEB 0.5-3 MG/3 ml Neb] 3 ml IH Q4-6HPRN PRN 07/30/17 [History] Alprazolam 0.25 mg [xanAX 0.25 MG] 0.25 mg PO DAILY 07/30/17 [History] Cefaclor [Ceclor] 500 mg PO DAILY 07/30/17 [History] Docusate Sodium 100 mg [Colace 100 MG] 100 mg PO DAILY 07/30/17 [History] Hydrocortisone Acetate [Micort-Hc] 4 gm TP DAILY 07/30/17 [History] L. Acidophilus/Pectin, [place] [Acidophilus Probiotic Capsule] 1 each PO DAILY [History] Midodrine HCl 2.5 mg PO DAILY 07/30/17 [History] Paroxetine HCl [Paxil] 10 mg PO DAILY 07/30/17 [History] Hx Tetanus, Diphtheria Vaccination/Date Given: Yes Hx Influenza Vaccination/Date Given: No Hx Pneumococcal Vaccination/Date Given: Yes Immunizations Up to Date: Yes - Review of Systems Constitutional: Fatigue, Weight Loss, No Fever Eyes: No Symptoms Ears, Nose, & Throat: No Ear Pain, No Tinnitus, No Epistaxis, No Throat Pain Respiratory: No Cough, No Dyspnea, No Wheezing Cardiac: No Chest Pain, No Edema, No Orthopnea Abdominal/Gastrointestinal: No Abdominal Pain, No Nausea, No Vomiting, No Diarrhea Genitourinary Symptoms: No Dysuria, No Frequency, No Hematuria, No Hesitancy, No Vaginal Bleeding Musculoskeletal: Fall (from standing), Injury (head, face; knees), Joint Pain ( knees) Skin: Other (bruises various ages) Neurological: Other (dementia), No Focal Weakness, No Headache, No Paralysis, No Seizure, No Sensory Changes Psychological: No Symptoms Endocrine: No Symptoms Hematologic/Lymphatic: Anemia, Easy Bruising Immunological/Allergic: No Symptoms - Past Medical History Pertinent Past Medical History: Yes Neurological History: No Pertinent History ENT History: Cataracts Cardiac History: High Cholesterol, Hypertension Respiratory History: COPD, Other Endocrine Medical History: Other Musculoskeletal History: Arthritis GI Medical History: Diverticulosis, Irritable Bowel History: No Pertinent History Psycho-Social History: Anxiety Female Reproductive Disorders: Abnormal Uterine Bleeding, Other Other Medical History: has had cataracts removed, had partial thyroidectomy in 1965 non cancerous and has not had to take meds since, dx with copd but denies sob hx of smoker, has had colonoscopy had diverticulosis, had partial hysterectomy 1985 for heavy bleeding, has area in lung that Dr. Hogan is monitoring and had PET scan to check that area and an area showed up in colon so doing colonoscopy - Past Surgical History Past Surgical History: Yes Neuro Surgical History: No Pertinent History Cardiac: No Pertinent History Respiratory: No Pertinent History Gastrointestinal: Appendectomy Genitourinary: No Pertinent History Musculoskeletal: No Pertinent History Female Surgical History: Hysterectomy Other Surgical History: partial thyroidectomy 1965 noncancerous and has been on no meds since. bladder tuck 2003, colonoscopy 2007, cataracts removed 2007, vericose veins removed 1969. - Social History Smoking Status: Never smoker Exposure to second hand smoke: No Alcohol Use: None Drug Use: none Patient Lives Alone: No Significant Family History: no pertinent family hx - Female History Hx Now: No - Nursing Vital Signs Nursing Vital Signs: Initial Vital Signs Temperature 98.4 F 07/30/17 13:10 Pulse Rate 85 07/30/17 13:10 Respiratory Rate 18 07/30/17 13:10 Blood Pressure 187/92 07/30/17 13:10 O2 Sat by Pulse Oximetry 95 07/30/17 13:10 Pain Scale Pain Intensity 0 - [place] Com[place] Score Best Eye Response (Como): (4) open spontaneously Best Verbal Response ([place]): (5) oriented Best Motor Response ([place]): (6) obeys commands Jessica Total: 15 - Physical Exam General Appearance: mild distress, alert, thin Head Injury: contusions (face and forehead and nose), ecchymosis (forehead), lacerations (nasal bridge- 1 cm ), No active bleeding, No Valencia's Sign, No raccoon eyes Eye Exam: PERRL/EOMI, eyes nml inspection, other (fundi benign), No photophobia ENT Exam: airway nml, hearing grossly normal, other (tender nasal bridge; no epistaxis), No dental injury, No midface instability, No hemotympanum, No clotted nasal blood, No malocclusion, No oral injury Neck Exam: trachea midline, normal alignment, normal inspection, limited range of motion, stiff neck, No full range of motion, No focal neuro deficit, No paraspinous muscle tender, No pain on movement of neck, No tenderness, No meningismus, No carotid bruit, No JVD, No subcutaneous emphysema Respiratory/Chest Exam: normal breath sounds, No chest tenderness, No respiratory distress, No ecchymosis, No crepitus, No rhonchi, No wheezing, No subcutaneous emphysema, No palpable fracture Cardiovascular Exam: normal heart sounds, regular rate/rhythm, murmur (1/6 JANETH) , normal peripheral pulses, No edema, No JVD Gastrointestinal Exam: soft, normal bowel sounds, No tenderness, No guarding, No rebound, No organomegaly Rectal Exam: deferred Back Exam: normal inspection, normal range of motion, No CVA tenderness, No vertebral tenderness, No rash Extremity Exam: normal range of motion, capillary refill <3 sec, pelvis stable, contusions (bilateral knees), bony point tenderness (anterior knees), pain with movement (knees), No normal inspection (bilateral tender swelling anterior knees ; stable ; FROM wiht pain), No calf tenderness, No lacerations, No paralysis, No hip tenderness, No pedal edema Peripheral Pulses: carotid (R): 4+, carotid (L): 4+, femoral (R): 4+, femoral (L ): 4+, dorsalis-pedis (R): 3+, dorsalis-pedis (L): 3+ Neurologic Exam: alert, cooperative, medical art therapist II-XII nml as tested, normal mood/ affect, nml cerebellar function, sensation nml, No oriented x 3 (self and place ok), No nml station & gait (unsteady and weak) Skin Exam: normal color, warm, dry, ecchymosis, No rash SpO2 Interpretation: normal SpO2: 95 Oxygen Delivery: Room Air - Course Nursing assessment & vital signs reviewed: Yes EKG Interpreted by Me: RATE (77), Sinus Rhythm, NORMAL AXIS, NORMAL INTERVALS, NORMAL QRS, Non-specific ST Changes, Other (unchanged from 05-13-17) Rhythm Strip: Rate (76), Normal Sinus Rhythm - Radiology Exams Left Knee X-ray Interpretation: Interpreted by me, Negative, No Fracture, Other (djd) Right Knee X-ray Interpretation: Interpreted by me, Negative, No Fracture - CT Exams Head CT Interpretation: Negative, Tele-radiologist Report, Other (atrophy) Cervical Spine CT Interpretation: Tele-radiologist Report, DJD (no fracture) Ordered Tests: Active Orders 24 hr Category Date Time Status Bedrest ROUTINE Activity 07/30/17 16:20 Ordered Accucheck STAT Care 07/30/17 13:49 Active Admission/Status Order ROUTINE Care 07/30/17 16:18 Ordered Call Admit Doctor for Orders ON ADMISSION Care 07/30/17 16:19 Ordered Blasting Miner STAT Care 07/30/17 13:49 Active Code Status Order ROUTINE Care 07/30/17 16:18 Ordered Cold Application STAT Care 07/30/17 13:49 Active EKG-ER Only STAT Care 07/30/17 13:49 Active Fall Protocol ROUTINE Care 07/30/17 16:20 Ordered IV Care Q6H Care 07/30/17 16:18 Ordered IV Insertion STAT Care 07/30/17 13:49 Active Neuro Checks Q6H Care 07/30/17 16:18 Ordered Orthostatic Vital Signs STAT Care 07/30/17 13:51 Active Telemetry ROUTINE Care 07/30/17 16:18 Ordered Vital Signs Q6H Care 07/30/17 16:18 Ordered Weight,Daily 0600 Care 07/30/17 16:18 Ordered Regular Diet Diet 07/30/17 Dinner Ordered CERVICAL SPINE WO CONTRAST [CT] Stat Exams 07/30/17 13:49 Completed HEAD WITHOUT CONTRAST [CT] Stat Exams 07/30/17 13:49 Completed KNEE (3 VIEWS) Routine Exams 07/30/17 Completed KNEE (3 VIEWS) Stat Exams 07/30/17 13:51 Completed BMP Stat Lab 07/30/17 14:45 Completed CBC W DIFF Stat Lab 07/30/17 14:45 Completed CULTURE,URINE Stat Lab 07/30/17 14:30 Received PROTIME WITH INR Stat Lab 07/30/17 14:45 Completed UA W/ MICROSCOPIC Stat Lab 07/30/17 14:30 Completed Transfer Order Routine Transfer 07/30/17 Ordered Medication Summary Generic Name Dose Route Start Last Admin Trade Name Tami PRN Reason Stop Dose Admin Sodium Chloride 1,000 mls @ 50 mls/hr 07/30/17 14:00 07/30/17 15:00 Sodium Chloride 0.9% 1000 Ml IV 08/29/17 13:59 50 mls/hr .Q20H ANIBAL Administration Sodium Chloride 1,000 mls @ 250 mls/hr 07/30/17 16:00 Sodium Chloride 0.9% 1000 Ml IV 08/29/17 15:59 .Q4H ANIBAL Lab/Rad Data: Laboratory Result Diagrams 07/30/17 14:45 07/30/17 14:45 Laboratory Results 07/30/17 07/30/17 07/30/17 Range/Units 14:45 14:45 14:45 WBC 6.5 (4.0-10.5) K/mm3 RBC 4.47 (4.1-5.4) M/mm3 Hgb 12.1 (12.0-16.0) gm/dl Hct 37.3 (35-47) % MCV 83.4 (78-100) fl MCH 27.1 (26-32) pg MCHC 32.4 (32-36) g/dl RDW 15.1 H (11.5-14.0) % Plt Count 281 (150-450) K/mm3 MPV 10.1 H (6-9.5) fl Gran % 68.9 H (36.0-66.0) % Lymphocytes % 18.7 L (24.0-44.0) % Monocytes % 7.6 (0.0-12.0) % Eosinophils % 4.2 (0.00-5.0) % Basophils % 0.6 (0.0-0.4) % Basophils # 0.04 (0-0.4) INR 1.01 (0.8-3.0) Sodium 141 (136-145) mEq/L Potassium 4.3 (3.5-5.1) mEq/L Chloride 106 (98-107) mEq/L Carbon Dioxide 26.1 (21-32) mEq/L Anion Gap 13.2 (5-15) MEQ/L BUN 35 H (9-20) mg/dL Creatinine 0.82 (0.55-1.30) mg/dl Estimated GFR > 60 ML/MIN Glucose 92 (70-110) MG/DL Calcium 9.5 (8.5-10.1) mg/dL Ur Collection Type Urine Color (YELLOW) Urine Appearance (CLEAR) Urine pH (5-6) Ur Specific [place] (1.005-1.025) Urine Protein (Negative) Urine Ketones (NEGATIVE) Urine Blood (0-5) Carlos/ul Urine Nitrite (NEGATIVE) Urine Bilirubin (NEGATIVE) Urine Urobilinogen (0-1) mg/dL Ur Leukocyte Esterase (NEGATIVE) Urine Microscopic RBC (0-2) /HPF Urine Microscopic WBC (0-5) /HPF Ur Epithelial Cells (FEW) /HPF Urine Bacteria (NEGATIVE) /HPF Urine Glucose (NEGATIVE) mg/dL Specimen Received 07/30/17 Range/Units 14:30 WBC (4.0-10.5) K/mm3 RBC (4.1-5.4) M/mm3 Hgb (12.0-16.0) gm/dl Hct (35-47) % MCV (78-100) fl MCH (26-32) pg MCHC (32-36) g/dl RDW (11.5-14.0) % Plt Count (150-450) K/mm3 MPV (6-9.5) fl Gran % (36.0-66.0) % Lymphocytes % (24.0-44.0) % Monocytes % (0.0-12.0) % Eosinophils % (0.00-5.0) % Basophils % (0.0-0.4) % Basophils # (0-0.4) INR (0.8-3.0) Sodium (136-145) mEq/L Potassium (3.5-5.1) mEq/L Chloride (98-107) mEq/L Carbon Dioxide (21-32) mEq/L Anion Gap (5-15) MEQ/L BUN (9-20) mg/dL Creatinine (0.55-1.30) mg/dl Estimated GFR ML/MIN Glucose (70-110) MG/DL Calcium (8.5-10.1) mg/dL Ur Collection Type CLEAN CATCH Urine Color YELLOW (YELLOW) Urine Appearance HAZY (CLEAR) Urine pH 8.0 (5-6) Ur Specific [place] 1.010 (1.005-1.025) Urine Protein TRACE (Negative) Urine Ketones TRACE (NEGATIVE) Urine Blood 5-10 (0-5) Carlos/ul Urine Nitrite NEGATIVE (NEGATIVE) Urine Bilirubin NEGATIVE (NEGATIVE) Urine Urobilinogen NORMAL (0-1) mg/dL Ur Leukocyte Esterase TRACE (NEGATIVE) Urine Microscopic RBC 2-5 (0-2) /HPF Urine Microscopic WBC 2-5 (0-5) /HPF Ur Epithelial Cells MANY (FEW) /HPF Urine Bacteria FEW (NEGATIVE) /HPF Urine Glucose NEGATIVE (NEGATIVE) mg/dL Specimen Received 07/30/17 1430 reviewedreviewed - Progress Progress: unchanged, re-examined (after ct) Progress Note: 07/30/17 15:[address] head and neck - nad; DJD; cbc-ok; U/A trace leuk, ph 8.0 spec gr 1010 ; tr prot- 5-10 rbc, 2-5 wbc; few bact; OSVS show significant drop to hypotension upright- unable to stand; will hydrate and monitor; EKG ok; other labs pending; knee xr ok Discussed with : Rocío (called and discussed admission) Will see patient in: hospital (full admit) Counseled pt/family regarding: lab results, diagnosis, need for follow-up, rad results - Departure Time of Disposition: 16:21 Departure Disposition: In-patient Admission Clinical Impression: Weakness, Orthostatic hypotension, Head injury, Dementia, contusion knees Condition: Serious Critical Care Time: No Critical Care Time(excluding separately billable procedures): 30-74 minutes Referrals: HUNTER POOL [Primary Care Provider] - Instructions: Contusion, Prevent Falls
[2017-07-30 15:43] LABS: BASOPHIL % 0.6 % (0.0-0.4); Eosinophil % 4.2 % (0.00-5.0); Granulocytes % 68.9 % (36.0-66.0); Lymphocytes % 18.7 % (24.0-44.0); Mean Cell Volume 83.4 fl (78-100); Mean Corpuscular Hemoglobin 27.1 pg (26-32); Mean Platelet Volume 10.1 fl (6-9.5); Monocytes % 7.6 % (0.0-12.0); Platelet Count 281 K/mm3 (150-450); Red Blood Count 4.47 M/mm3 (4.1-5.4); Red Cell Distribution Width 15.1 % (11.5-14.0); White Blood Count 6.5 K/mm3 (4.0-10.5)
[2017-07-30 15:54] LABS: INR 1.01 (0.8-3.0); PROTIME 11.2 SECONDS (9.95-12.35)
[2017-07-30 15:56] LABS: ANION GAP 13.2 MEQ/L (5-15); BLOOD UREA NITROGEN 35 mg/dL (9-20); CHLORIDE 106 mEq/L (98-107); Carbon Dioxide 26.1 mEq/L (21-32); Glucose 92 MG/DL (70-110); SODIUM 141 mEq/L (136-145)
--- NOTE | 2017-07-30 15:57 | XRAY ---
Exam: 3 views of the left knee from 07/30/2017. Comparison: None. Indication: Fall, complains of bilateral knee pain. Findings: AP, oblique, and crosstable lateral views of the left knee were obtained. The left knee is mildly flexed. I see no acute fracture, dislocation, or suprapatellar effusion. There appears to be some mild narrowing of the medial compartment of left knee joint space. There is minimal osteophyte formation at the medial margin of the left knee joint. I believe there is also moderate narrowing of the patellofemoral joint with small posterior marginal patellar spurring. There is a 2 mm in diameter round calcification anterior to the left knee joint on the lateral radiograph. Impression: 1. No acute fracture, dislocation, or suprapatellar effusion of the left knee is seen. 2. Bicompartmental osteoarthritis of the left knee joint involving the medial compartment and the patellofemoral joint.
[2017-07-30 15:59] LABS: Potassium 4.3 mEq/L (3.5-5.1)
[2017-07-30] MEDS ORDERED: Sodium Chloride 0.9% 1000 ML 1,000 ML IV SCH ×2 (16:00→16:30)
--- NOTE | 2017-07-30 16:02 | XRAY ---
Exam: 3 views of the right knee from 07/30/2017. Comparison: None. Indication: Fall, complains of bilateral knee pain. Findings: AP, oblique, and crosstable lateral films of the right knee were obtained. I see no acute fracture, dislocation, or suprapatellar effusion. The right knee is slightly flexed. I believe there is mild narrowing of the medial compartment of the right knee joint space with some associated minimal osteophyte formation. Mild hypertrophic change of the tibial eminences is seen. I also note moderate narrowing of the patellofemoral joint on the lateral radiograph with mild spurring at the anterior superior margin of the right patella as well as the upper and lower posterior margins of the right patella. No other focal bone lesion is seen. Impression: 1. No acute right knee fracture, dislocation, or suprapatellar joint effusion is seen. 2. Bicompartmental osteoarthritis of the right knee is seen, as described above.
[2017-07-30] MEDS ORDERED: xanAX 0.25 MG PO PRN (21:41)
[2017-07-30] MEDS ORDERED: MOTRIN 200 MG PO PRN (21:44)
[2017-07-30] MEDS ORDERED: TYLENOL 325 MG PO PRN (21:50)
[2017-07-30] MEDS ORDERED: BUSPAR 5 MG PO ONE (22:00)
[2017-07-30] MEDS ORDERED: PROAMATINE 5 MG PO ONE (22:00)
[2017-07-30] MEDS ORDERED: ROCEPHIN 1 Gm-D5w 50 ml Bag** 1 G/50 ML IVPB IV SCH (22:00)
[2017-07-31] MEDS ORDERED: [UNRECOGNIZED DRUG - OTHER] PO PRN (07:19)
[2017-07-31] MEDS ORDERED: CAFFEINE PO PRN (07:19)
[2017-07-31] MEDS ORDERED: ACETAMINOPHEN PO PRN (07:19)
[2017-07-31] MEDS ORDERED: ASPIRIN PO PRN (07:19)
[2017-07-31] MEDS ORDERED: DUONEB 0.5-3 MG/3 ml Neb IH PRN (07:19)
[2017-07-31] MEDS ORDERED: MEDICATION INTERVENTION MC PRN (07:27)
[2017-07-31] MEDS ORDERED: xanAX 0.25 MG PO PRN (07:30)
--- NOTE | 2017-07-31 08:35 | PCM.HP ---
History of Present Illness - Chief Complaint Chief Complaint: orthostatic hypotension- can't walk or stand History of Present Illness: is a 81 year old female pt from [facility] with mild-moderate dementia who came in yesterday from home. She was not able to move her extremities well, she states, "nothing was working." Her daughter had called the office and we advised taking pt to ER. The only abnormality found in ER was her orthostatic hypotension, which she has been struggling with for the past several months. She saw Dr. Olivier in consultation 2d ago and has been placed on midodrine. This morning she is slightly tearful, particularly when she talks about her . She is oriented to place and time but is somewhat tangential. - Review of Systems All Other Systems: Unable due to dementia Medications & Allergies Home Medications: Home Medication List Albuterol/Ipratropium 3ml Neb* [DUONEB 0.5-3 MG/3 ml Neb] 3 ml IH Q4-6HPRN PRN 07/30/17 [History Confirmed 07/30/17] Alprazolam 0.25 mg [xanAX 0.25 MG] 0.25 mg PO BID PRN PRN 07/30/17 [ History Confirmed 07/30/17] Aspirin/Acetaminophen/Caffeine [Excedrin Extra Strength Caplet] 1 each PO Q8H PRN PRN 07/30/17 [History Confirmed 07/30/17] Buspirone HCl 5 mg [Buspar 5 mg] 5 mg PO BID 07/30/17 [History Confirmed 07/30/17] Calcium Carbonate/Vitamin D3 [Calcium 600 + Vit D Tablet] 1 each PO DAILY [History Confirmed 07/30/17] Cefaclor [Ceclor] 500 mg PO TID 07/30/17 [History Confirmed 07/30/17] Docusate Sodium 100 mg [Colace 100 MG] 100 mg PO DAILY PRN PRN 07/30/17 [ History Confirmed 07/30/17] Ibuprofen [Advil] 200 mg PO Q12H PRN PRN 07/30/17 [History Confirmed 07/30/17] L. Acidophilus/Pectin, [place] [Acidophilus Probiotic Capsule] 1 each PO DAILY [History Confirmed 07/30/17] Midodrine HCl 2.5 mg PO BID 07/30/17 [History Confirmed 07/30/17] Multivitamin [Daily Multivitamin] 1 each PO DAILY 07/30/17 [History Confirmed ] Paroxetine HCl [Paxil] 10 mg PO DAILY 07/30/17 [History Confirmed 07/30/17] Allergies/Adverse Reactions: Allergies Allergy/AdvReac Type Severity Reaction Status Date / Time Sulfa (Sulfonamide Allergy Mild Verified 07/30/17 13:34 Antibiotics) sulfamethoxazole Allergy Mild Verified 07/30/17 13:34 [From Bactrim] tetracycline Allergy Mild Verified 07/30/17 13:34 trimethoprim [From Bactrim] Allergy Mild Verified 07/30/17 13:34 amoxicillin Allergy Vomiting Verified 07/30/17 13:34 azithromycin Allergy UNKWON Verified 07/30/17 13:34 codeine Allergy UNSURE Verified 07/30/17 13:34 - Past Medical History Past Medical History: Yes Neurological History: No Pertinent History ENT History: Cataracts Cardiac History: High Cholesterol, Hypertension Respiratory History: COPD, Other Endocrine Medical History: Other Musculoskelatal History: Arthritis GI Medical History: Diverticulosis, Irritable Bowel History: No Pertinent History Pyscho-Social History: Anxiety Reproductive Disorders: Abnormal Uterine Bleeding, Other Comment: has had cataracts removed, had partial thyroidectomy in 1965 non cancerous and has not had to take meds since, dx with copd but denies sob hx of smoker, has had colonoscopy had diverticulosis, had partial hysterectomy 1985 for heavy bleeding, has area in lung that Dr. Hogan is monitoring and had PET scan to check that area and an area showed up in colon so doing colonoscopy - Female History Are you now?: No - Past Surgical History Past Surgical History: Yes Neuro Surgical History: No Pertinent History Cardiac History: No Pertinent History Respiratory Surgery: No Pertinent History GI Surgical History: Appendectomy Genitourinary Surgical Hx: No Pertinent History Musculskeletal Surgical Hx: No Pertinent History Female Surgical History: Hysterectomy Other Surgical History: partial thyroidectomy 1965 noncancerous and has been on no meds since. bladder tuck 2003, colonoscopy 2007, cataracts removed 2007, vericose veins removed 1969. - Social History Smoking Status: Former smoker Exposure to second hand smoke: No Alcohol: None Drug Use: none Significant Family History: no pertinent family hx - Physical Exam Vital Signs: Vital Signs - 24 hr Temp Pulse Resp BP Pulse Ox 07/31/17 07:16 98.0 F 59 L 16 149/65 95 07/31/17 04:00 97.9 F 67 16 115/56 95 07/31/17 00:00 98.0 F 82 17 132/62 94 L 07/30/17 20:46 98.2 F 77 16 164/79 94 L 07/30/17 17:44 97.0 F 78 20 158/73 95 07/30/17 17:33 97.0 F 78 158/73 07/30/17 16:47 75 20 159/72 95 07/30/17 16:46 97.0 F 78 16 158/73 95 07/30/17 16:22 95 07/30/17 16:22 83 20 154/75 98 07/30/17 16:18 97.0 F 78 16 158/73 95 07/30/17 15:41 82 18 166/85 98 07/30/17 13:10 98.4 F 85 18 187/92 95 General Appearance: no apparent distress, alert Neurologic Exam: oriented x 3, cooperative, rf technician II-XII nml as tested, other ( 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 5/5 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) Eye Exam: eyes nml inspection Neck Exam: normal inspection, non-tender, No lymphadenopathy Respiratory Exam: normal breath sounds, No crackles/rales, No rhonchi, No wheezing Cardiovascular Exam: regular rate/rhythm, normal heart sounds, No murmur Gastrointestinal/Abdomen Exam: soft, normal bowel sounds, No tenderness, No distention, No mass Back Exam: normal inspection Extremity Exam: normal inspection, No pedal edema, No swelling Skin Exam: normal color, warm, dry Assessment/Plan (1) Weakness Current Visit: Yes Status: Acute Assessment & Plan: I suspect this may be psychosomatic related to her dementia, but would appreciate teleneurology consult. Her symptoms are vague by self report. Her family noted that she was even unable to sit up on the couch, they would tell her things like, "just move this leg mom" and she could do some of those things but seemed unable to do them herself. As recently as May she has had an MRI of the brain with and without contrast that showed age-related changes (nothing acute), RPR neg, TSH normal, B12 normal. Carotid dopplers with minimal plaquing in proximal left internal carotid. She has had episodes of hyponatremia, but sodium was normal last week and yesterday. Code(s): R53.1 - WEAKNESS (2) Dementia Current Visit: Yes Status: Acute Qualifiers: Alzheimer's disease onset: late-onset Dementia behavioral disturbance: without behavioral disturbance Code(s): F03.90 - UNSPECIFIED DEMENTIA WITHOUT BEHAVIORAL DISTURBANCE (3) Orthostatic hypotension Current Visit: Yes Status: Chronic Assessment & Plan: Home health nurse documented 120 systolic sitting to mid 80s systolic standing and similar BP on multiple occasions. I weaned down her BP med (isosorbide) when this started but it was persistent with weakness and falls (she slides down from a standing position). She saw cardiology 2d ago. Code(s): I95.1 - ORTHOSTATIC HYPOTENSION (4) Hypertension Current Visit: No Status: Chronic Qualifiers: Hypertension type: essential hypertension Qualified Code(s): I10 - Essential (primary) hypertension Assessment & Plan: BP elevated but her bp drops so much with position change I will just observe for now. Code(s): I10 - ESSENTIAL (PRIMARY) HYPERTENSION (5) Falls frequently Current Visit: Yes Status: Chronic Code(s): R29.6 - REPEATED FALLS
[2017-07-31] MEDS: Paxil 20 MG PO SCH (09:02)
[2017-07-31] MEDS: Acidophilus TABLET PO SCH (09:02)
[2017-07-31] MEDS: BUSPAR 5 MG PO SCH ×2 (09:02→23:27)
[2017-07-31] MEDS ORDERED: NON-FORMULARY ITEM (Paroxetine Hcl [Paxil] 10 MG) PO SCH (10:00)
[2017-07-31] MEDS ORDERED: [UNRECOGNIZED DRUG - OTHER] PO SCH (10:00)
[2017-07-31] MEDS: Norco 10/325 MG Tablet PO PRN (11:31)
[2017-07-31] MEDS: Sodium Chloride 0.9% 1000 ML 1,000 ML IV SCH (12:19)
[2017-07-31] MEDS ORDERED: ROCEPHIN 1 Gm-D5w 50 ml Bag** 1 G/50 ML IVPB IV SCH (22:00)
[2017-08-01] MEDS: xanAX 0.25 MG PO PRN ×2 (00:04→22:46)
[2017-08-01 06:10] LABS: Mean Cell Volume 83.6 fl (78-100); Mean Platelet Volume 9.8 fl (6-9.5); Platelet Count 249 K/mm3 (150-450); Red Blood Count 4.09 M/mm3 (4.1-5.4); Red Cell Distribution Width 14.9 % (11.5-14.0); White Blood Count 5.6 K/mm3 (4.0-10.5)
[2017-08-01 06:24] LABS: Mean Corpuscular Hemoglobin 27.3 pg (26-32)
[2017-08-01 06:32] LABS: BLOOD UREA NITROGEN 19 mg/dL (9-20); CHLORIDE 106 mEq/L (98-107); Carbon Dioxide 26.4 mEq/L (21-32); Glucose 98 MG/DL (70-110); Potassium 3.4 mEq/L (3.5-5.1); SODIUM 141 mEq/L (136-145)
[2017-08-01] MEDS: Norco 10/325 MG Tablet PO PRN ×2 (08:09→22:46)
[2017-08-01] MEDS: Acidophilus TABLET PO SCH (08:09)
[2017-08-01] MEDS: BUSPAR 5 MG PO SCH ×2 (08:09→22:46)
[2017-08-01] MEDS: Paxil 20 MG PO SCH (08:11)
[2017-08-01] MEDS: Sodium Chloride 0.9% 1000 ML 1,000 ML IV SCH (08:12)
--- NOTE | 2017-08-01 14:51 | PCM.NOTE ---
Date and Time: 08/01/17 1446 Subjective Assessment: Pt was restless overnight. She thinks she has been taking xanax BID. Tyson po, but did get choked on rice yesterday. She says she gets choked on bread sometimes. - Review of Systems Constitutional: No Fever Psychological: Anxiety Objective Exam General Appearance: no apparent distress, alert Neurologic Exam: oriented x 3, cooperative Skin Exam: normal color, warm, dry Respiratory Exam: lungs clear, crackles/rales (scattered at bases), other (good air exchange), No rhonchi, No wheezing Cardiovascular Exam: regular rate/rhythm, normal heart sounds, No murmur Gastrointestinal/Abdomen Exam: soft, normal bowel sounds, No tenderness, No distention, No mass Extremity Exam: No pedal edema, No swelling Back Exam: normal inspection OBJECTIVE DATA Vital Signs: Vital Signs - 24 hr Temp Pulse Resp BP Pulse Ox 08/01/17 12:35 97.6 F 80 18 166/78 95 08/01/17 07:49 87 168/74 08/01/17 07:48 88 168/70 08/01/17 07:47 97.6 F 86 18 170/75 96 08/01/17 04:00 97.7 F 87 20 189/90 94 L 08/01/17 00:00 98.3 F 84 18 176/89 94 L 07/31/17 23:00 156/67 07/31/17 20:00 97.9 F 80 16 180/81 95 07/31/17 16:00 97.9 F 83 20 152/60 92 L Pain Assessment - Last Documented Pain Intensity 6 Pain Scale Used 0-10 Pain Scale Intake and Output: Intake & Output 07/30/17 07/31/17 08/01/17 08/02/17 11:59 11:59 11:59 11:59 Intake Total 2370 2094 Output Total 0 2150 300 Balance 2370 -56 -300 Weight 45.45 kg 45.813 kg Lab Results: Lab Results-Last 24 Hours 08/01/17 08/01/17 Range/Units 05:24 05:24 WBC 5.6 (4.0-10.5) K/mm3 RBC 4.09 L (4.1-5.4) M/mm3 Hgb 11.2 L (12.0-16.0) gm/dl Hct 34.2 L (35-47) % MCV 83.6 (78-100) fl MCH 27.3 (26-32) pg MCHC 32.7 (32-36) g/dl RDW 14.9 H (11.5-14.0) % Plt Count 249 (150-450) K/mm3 MPV 9.8 H (6-9.5) fl Sodium 141 (136-145) mEq/L Potassium 3.4 L (3.5-5.1) mEq/L Chloride 106 (98-107) mEq/L Carbon Dioxide 26.4 (21-32) mEq/L Anion Gap 12.0 (5-15) MEQ/L BUN 19 (9-20) mg/dL Creatinine 0.71 (0.55-1.30) mg/dl Estimated GFR > 60 ML/MIN Glucose 98 (70-110) MG/DL Calcium 8.4 L (8.5-10.1) mg/dL Radiology Exams: Radiology Procedures Category Date Time Status ECHO W/2D AND DOPPLER [US] Routine Exams 07/31/17 Taken Multi-Disciplinary Progress Notes: Multi-Disciplinary Progress Notes 07/31/17 17:41 Physical Therapy Note by Fernanda Owens PATIENT AND FAMILY ADVISED THAT PATIENT NEEDS TIME OOB AND ROUTINE MOBILIZATION OVER THE WEEKEND IN DAILY CARE TO PREP FOR THERAPY INTERVENTION. PATIENT NEEDS VERBAL CUES FOR BEST PERFORMANCE IN FUNCTIONAL MOBILITY. SHE NEEDS ASSIST +1-2 TO BATHROOM PRN FOR SAFETY - AVOID USE OF BEDSIDE COMMODE; NEEDS TO BE UP IN CHAIR 1-2 HRS TID. INITIAL SCREENING ASSESSMENT DONE TODAY......WILL CONTINUE EVALUATION ON THURSDAY. Initialized on 07/31/17 17:41 - END OF NOTE Assessment/Plan (1) UTI (urinary tract infection) Current Visit: No Status: Acute Qualifiers: Urinary tract infection type: acute cystitis Hematuria presence: without hematuria Qualified Code(s): N30.00 - Acute cystitis without hematuria Assessment & Plan: was on po cephalosporin outpatient; now on rocephin. Code(s): N39.0 - URINARY TRACT INFECTION, SITE NOT SPECIFIED (2) Failure of outpatient treatment Current Visit: No Status: Acute Code(s): Z78.9 - OTHER SPECIFIED HEALTH STATUS (3) Weakness Current Visit: Yes Status: Acute Assessment & Plan: Per neurology, likely resulting from her orthostatic hypotension (basically, an underuse syndrome). After having multiple falls, she stops moving around as much and gets weaker. PT is consulted. Weaning down on the xanax. May need to have more intensive therapy for a while after discharge. Code(s): R53.1 - WEAKNESS (4) Dementia Current Visit: Yes Status: Chronic Qualifiers: Alzheimer's disease onset: unspecified onset Dementia behavioral disturbance: without behavioral disturbance Code(s): F03.90 - UNSPECIFIED DEMENTIA WITHOUT BEHAVIORAL DISTURBANCE (5) Orthostatic hypotension Current Visit: Yes Status: Chronic Code(s): I95.1 - ORTHOSTATIC HYPOTENSION (6) Hypertension Current Visit: No Status: Ruled-out Qualifiers: Hypertension type: essential hypertension Qualified Code(s): I10 - Essential (primary) hypertension Assessment & Plan: BP are elevated; she is off her BP meds since she became orthostatic (over the past 1 mo or so). Will consult her cardiology group to see if they recommend starting back on any antihypertensives. Code(s): I10 - ESSENTIAL (PRIMARY) HYPERTENSION (7) Falls frequently Current Visit: Yes Status: Chronic Code(s): R29.6 - REPEATED FALLS (8) Dysphagia Current Visit: Yes Status: Acute Qualifiers: Dysphagia type: pharyngoesophageal phase Qualified Code(s): R13.14 - Dysphagia, pharyngoesophageal phase Assessment & Plan: Swallow study was recommended and ordered. May benefit from EGD in the future. Code(s): R13.10 - DYSPHAGIA, UNSPECIFIED
[2017-08-01] MEDS ORDERED: Levofloxacin 500MG/100ML D5W 500 MG/100 ML BAG IV SCH (17:00)
[2017-08-01] MEDS ORDERED: BENADRYL 50 MG/ML IV ONE (17:30)
[2017-08-02] MEDS ORDERED: DUONEB 0.5-3 MG/3 ml Neb IH PRN (08:24)
[2017-08-02] MEDS: Sodium Chloride 0.9% 1000 ML 1,000 ML IV SCH (08:28)
[2017-08-02] MEDS ORDERED: Colace 100 MG PO PRN (08:31)
[2017-08-02] MEDS: Norco 10/325 MG Tablet PO PRN ×2 (08:36→17:13)
[2017-08-02] MEDS: BUSPAR 5 MG PO SCH ×2 (10:17→21:23)
[2017-08-02] MEDS: Paxil 20 MG PO SCH (10:17)
[2017-08-02] MEDS: Acidophilus TABLET PO SCH (10:17)
[2017-08-02] MEDS ORDERED: APRESOLINE 20 MG/ML INJ IV PRN (10:20)
--- NOTE | 2017-08-02 11:32 | PCM.NOTE ---
Date and Time: 08/02/171127 Subjective Assessment: Pt has been out of bed walking wiht assistance this morning. She is c/o some migratory muscle pains. Tyson po. - Review of Systems Constitutional: Weakness, No Fever Objective Exam General Appearance: no apparent distress, alert Neurologic Exam: cooperative, other (somewhat shuffling gait) Skin Exam: normal color, warm, dry, other (multiple bruises, yellow to purple, scattered on face) Respiratory Exam: normal breath sounds, lungs clear, No crackles/rales, No rhonchi, No wheezing Cardiovascular Exam: regular rate/rhythm, normal heart sounds, No murmur Gastrointestinal/Abdomen Exam: soft, normal bowel sounds, No tenderness Extremity Exam: No pedal edema, No swelling OBJECTIVE DATA Vital Signs: Vital Signs - 24 hr Temp Pulse Resp BP Pulse Ox 08/02/17 09:24 95 H 20 95 08/02/17 07:41 96.4 F 86 18 136/78 96 08/02/17 04:00 97.7 F 86 16 187/78 94 L 08/02/17 00:00 98.5 F 81 14 163/79 96 08/01/17 20:00 98.2 F 83 16 181/85 97 08/01/17 16:08 97.6 F 08/01/17 12:35 97.6 F 80 18 166/78 95 Pain Assessment - Last Documented Pain Intensity 6 Pain Scale Used 0-10 Pain Scale Intake and Output: Intake & Output 07/30/17 07/31/17 08/01/17 08/02/17 11:59 11:59 11:59 11:59 Intake Total 2370 2094 2246 Output Total 0 2150 1700 Balance 2370 -56 546 Weight 45.45 kg 45.813 kg 45.722 kg Assessment/Plan (1) UTI (urinary tract infection) Current Visit: No Status: Acute Qualifiers: Urinary tract infection type: acute cystitis Hematuria presence: without hematuria Qualified Code(s): N30.00 - Acute cystitis without hematuria Assessment & Plan: Urine culture + for pseudomonas, resistant to previous antibiotics. Rocephin discontinued and levaquin started. Will likely need several days of treatment on IV levaquin prior to discharge. Code(s): N39.0 - URINARY TRACT INFECTION, SITE NOT SPECIFIED (2) Failure of outpatient treatment Current Visit: No Status: Acute Code(s): Z78.9 - OTHER SPECIFIED HEALTH STATUS (3) Weakness Current Visit: Yes Status: Acute Assessment & Plan: Needs therapy. Disuse phenomenon. Code(s): R53.1 - WEAKNESS (4) Dementia Current Visit: Yes Status: Chronic Qualifiers: Alzheimer's disease onset: unspecified onset Dementia behavioral disturbance: without behavioral disturbance Code(s): F03.90 - UNSPECIFIED DEMENTIA WITHOUT BEHAVIORAL DISTURBANCE (5) Orthostatic hypotension Current Visit: Yes Status: Chronic Assessment & Plan: Await further recommendations from Dr. Olivier, thank you. Code(s): I95.1 - ORTHOSTATIC HYPOTENSION (6) Hypertension Current Visit: No Status: Ruled-out Qualifiers: Hypertension type: essential hypertension Qualified Code(s): I10 - Essential (primary) hypertension Assessment & Plan: BP at times quite elevated, pu to 187 systolic. I did add hydralazine IV for BP > 180 systolic or > 110 diastolic. However would appreciate cardiology recommendations as well for these elevated bp. Previously was on imdur but she was weaned off of this when she started having orthostasis. Code(s): I10 - ESSENTIAL (PRIMARY) HYPERTENSION (7) Falls frequently Current Visit: Yes Status: Chronic Code(s): R29.6 - REPEATED FALLS (8) Dysphagia Current Visit: Yes Status: Acute Qualifiers: Dysphagia type: pharyngoesophageal phase Qualified Code(s): R13.14 - Dysphagia, pharyngoesophageal phase Code(s): R13.10 - DYSPHAGIA, UNSPECIFIED
[2017-08-02] MEDS ORDERED: Levofloxacin 500MG/100ML D5W 500 MG/100 ML BAG IV SCH (17:00)
[2017-08-02] MEDS: xanAX 0.25 MG PO PRN (21:23)
[2017-08-02] MEDS: Levofloxacin 500MG/100ML D5W 500 MG/100 ML BAG IV SCH (21:23)
--- NOTE | 2017-08-03 08:38 | PCM.NOTE ---
Date and Time: 08/03/17 08 Subjective Assessment: Up to bathroom with assist this morning. Tyson po well. She had leg pain last night and took a pain pill. Says she feels "not right" in her legs this morning but is anxious to be up walking. - Review of Systems Constitutional: No Fever Musculoskeletal: Myalgias Objective Exam General Appearance: no apparent distress, alert Neurologic Exam: oriented x 3, cooperative Skin Exam: normal color, warm, dry Eye Exam: eyes nml inspection Respiratory Exam: lungs clear, crackles/rales (faint crackles RLL as usual), No rhonchi, No wheezing Cardiovascular Exam: normal heart sounds, tachycardia, No murmur Gastrointestinal/Abdomen Exam: No distention Extremity Exam: No pedal edema, No swelling Back Exam: normal inspection OBJECTIVE DATA Vital Signs: Vital Signs - 24 hr Temp Pulse Resp BP Pulse Ox 08/03/17 07:28 97.6 F 86 18 136/74 96 08/03/17 04:05 97.8 F 81 18 173/82 96 08/02/17 23:44 58 L 15 08/02/17 20:57 82 16 96 08/02/17 20:00 97.9 F 83 16 170/78 95 08/02/17 16:42 97.8 F 82 18 140/78 96 08/02/17 09:24 95 H 20 95 Pain Assessment - Last Documented Pain Intensity 0 Pain Scale Used 0-10 Pain Scale Intake and Output: Intake & Output 07/31/17 08/01/17 08/02/17 08/03/17 11:59 11:59 11:59 11:59 Intake Total 2370 2094 2246 1642 Output Total 0 2150 1700 1700 Balance 2370 -56 546 -58 Weight 45.45 kg 45.813 kg 45.722 kg Multi-Disciplinary Progress Notes: Multi-Disciplinary Progress Notes 08/02/17 11:46 Case Management Note by Kimi Sr DISCHARGE PLAN REVIEWED, PT REPORTS THAT SHE IS PLANNING TO RETURN HOME TO ASSISTED LIVING WITH . NO FAMILY PRESENT AT BESIDE AT THIS TIME. WILL CONTINUE TO FOLLOW AND ASSESS FOR ALL DC NEEDS. Initialized on 08/02/17 11:46 - END OF NOTE Assessment/Plan (1) UTI (urinary tract infection) Current Visit: No Status: Acute Qualifiers: Urinary tract infection type: acute cystitis Hematuria presence: without hematuria Qualified Code(s): N30.00 - Acute cystitis without hematuria Assessment & Plan: changed antibiotic over the weekend, pt has pseudomonas. On IV levaquin. Code(s): N39.0 - URINARY TRACT INFECTION, SITE NOT SPECIFIED (2) Failure of outpatient treatment Current Visit: No Status: Acute Code(s): Z78.9 - OTHER SPECIFIED HEALTH STATUS (3) Weakness Current Visit: Yes Status: Acute Assessment & Plan: PT to work with pt today. Await their recommendations. Code(s): R53.1 - WEAKNESS (4) Dementia Current Visit: Yes Status: Chronic Qualifiers: Alzheimer's disease onset: unspecified onset Dementia behavioral disturbance: without behavioral disturbance Code(s): F03.90 - UNSPECIFIED DEMENTIA WITHOUT BEHAVIORAL DISTURBANCE (5) Orthostatic hypotension Current Visit: Yes Status: Chronic Code(s): I95.1 - ORTHOSTATIC HYPOTENSION (6) Hypertension Current Visit: No Status: Ruled-out Qualifiers: Hypertension type: essential hypertension Qualified Code(s): I10 - Essential (primary) hypertension Assessment & Plan: BP has risen since admission - Would like Dr. Olivier's input pls in light of orthostatic hypotension. Code(s): I10 - ESSENTIAL (PRIMARY) HYPERTENSION (7) Falls frequently Current Visit: Yes Status: Chronic Code(s): R29.6 - REPEATED FALLS (8) Dysphagia Current Visit: Yes Status: Acute Qualifiers: Dysphagia type: pharyngoesophageal phase Qualified Code(s): R13.14 - Dysphagia, pharyngoesophageal phase Assessment & Plan: Pt has complained of some swallowing issues - will need to discuss further prior to discharge & determine if further workup is needed. Code(s): R13.10 - DYSPHAGIA, UNSPECIFIED
[2017-08-03 09:10] LABS: Mean Cell Volume 82.9 fl (78-100); Mean Corpuscular Hemoglobin 27.5 pg (26-32); Mean Platelet Volume 9.7 fl (6-9.5); Platelet Count 234 K/mm3 (150-450); Red Blood Count 4.51 M/mm3 (4.1-5.4); Red Cell Distribution Width 14.8 % (11.5-14.0); White Blood Count 6.2 K/mm3 (4.0-10.5)
[2017-08-03] MEDS: BUSPAR 5 MG PO SCH ×2 (09:16→22:19)
[2017-08-03] MEDS: Acidophilus TABLET PO SCH (09:16)
[2017-08-03] MEDS: ENOXAPARIN SODIUM SQ SCH (09:16)
[2017-08-03] MEDS: Paxil 20 MG PO SCH (09:16)
[2017-08-03 09:22] LABS: ANION GAP 13.9 MEQ/L (5-15); Carbon Dioxide 25.2 mEq/L (21-32); Potassium 3.5 mEq/L (3.5-5.1)
[2017-08-03] MEDS: Sodium Chloride 0.9% 1000 ML 1,000 ML IV SCH (13:46)
[2017-08-03] MEDS: Norco 10/325 MG Tablet PO PRN (18:27)
[2017-08-03] MEDS: Levofloxacin 500MG/100ML D5W 500 MG/100 ML BAG IV SCH (22:19)
[2017-08-04] MEDS: xanAX 0.25 MG PO PRN (00:33)
--- NOTE | 2017-08-04 08:45 | PCM.DS ---
Discharge Summary Date of Admission: 07/30/17 16:35 Admitting Physician: HUNTER POOL Consults: Consults on Case 07/31/17 08:44 Consult Neurology ROUTINE 08/01/17 14:46 Consult Cardiology ROUTINE 08/04/17 08:36 Consult Cardiology ROUTINE Primary Care Provider: HUNTER POOL Allergies Allergies Sulfa (Sulfonamide Antibiotics) Allergy (Mild, Verified 07/30/17 13:34) sulfamethoxazole [From Bactrim] Allergy (Mild, Verified 07/30/17 13:34) tetracycline Allergy (Mild, Verified 07/30/17 13:34) trimethoprim [From Bactrim] Allergy (Mild, Verified 07/30/17 13:34) amoxicillin Allergy (Verified 07/30/17 13:34) Vomiting azithromycin Allergy (Verified 07/30/17 13:34) UNKWON codeine Allergy (Verified 07/30/17 13:34) UNSURE Hospital Summary - Hospital Course Hospital Course: Pt admitted from home through the ER with weakness and multiple falls. The pt seemed to feel she couldn't move her extremities. CT head was non acute. Teleneurology with no findings, they advised pt likely had a disuse phenomenon after her frequent falls from orthostatic hypotension and needed therapy and to d/c the benzodiazepines. She also was treated with IV levaquin for her UTI, which was resistant to the rocephin she began treatment with. She has been up walking with assistance. Still c/o feeling weak. This morning she forgot she is going to the LTCF and told me she didn't feel well enough to go home for a few days. Tyson po. Her BP have been elevated throughout her stay, intermittently. She had been taken off her Imdur with the orthostatic hypotension. - Vitals & Intake/Output Vital Signs: Vital Signs Temperature 97.9 F 08/04/17 07:57 Pulse Rate 78 08/04/17 07:57 Respiratory Rate 18 08/04/17 07:57 Blood Pressure 178/79 08/04/17 07:57 O2 Sat by Pulse Oximetry 93 L 08/04/17 07:57 Intake & Output: Intake & Output 08/01/17 08/02/17 08/03/17 08/04/17 11:59 11:59 11:59 11:59 Intake Total 2094 2246 1642 1175 Output Total 6670 1700 1700 500 Balance -56 546 -58 675 Weight 45.813 kg 45.722 kg 49.804 kg - Lab Result Diagrams: 08/03/17 08:47 08/03/17 08:47 Lab Results-Last 24 Hrs: Lab Results-Last 24 Hours 08/03/17 08/03/17 Range/Units 08:47 08:47 WBC 6.2 (4.0-10.5) K/mm3 RBC 4.51 (4.1-5.4) M/mm3 Hgb 12.4 (12.0-16.0) gm/dl Hct 37.4 (35-47) % MCV 82.9 (78-100) fl MCH 27.5 (26-32) pg MCHC 33.2 (32-36) g/dl RDW 14.8 H (11.5-14.0) % Plt Count 234 (150-450) K/mm3 MPV 9.7 H (6-9.5) fl Sodium 138 (136-145) mEq/L Potassium 3.5 (3.5-5.1) mEq/L Chloride 102 (98-107) mEq/L Carbon Dioxide 25.2 (21-32) mEq/L Anion Gap 13.9 (5-15) MEQ/L BUN 13 (9-20) mg/dL Creatinine 0.96 (0.55-1.30) mg/dl Estimated GFR 59 ML/MIN Glucose 193 H (70-110) MG/DL Calcium 8.8 (8.5-10.1) mg/dL - Procedures and Test Procedures and Tests throughout Hospitalization: Therapy Orders & Screens 07/31/17 10:04 EKG STAT Comment: Diagnosis: orthostatic hypotension- can't walk or stand 07/31/17 14:36 PT Eval & Treat ( Order) ROUTINE Evaluate: Yes Treat: Yes Reason for Eval:: bilat upper weakness and lower weakness Diagnosis: orthostatic hypotension- can't walk or stand Speech Therapy Eval & Treat [ST Eval & Treat ( Order)] .as ordered Comment: Physician Instructions: Reason For Exam: Evaluate: Yes Treat: Yes Reason for Eval: chocked on her lunch/difficulty swallowing Diagnosis: orthostatic hypotension- can't walk or stand 08/02/17 08:56 Respiratory Nebulizer UD Comment: Q4-6PRN Diagnosis: orthostatic hypotension- can't walk or stand Discharge Exam General Appearance: no apparent distress, alert Neurologic Exam: cooperative, disoriented Skin Exam: normal color, warm, dry Respiratory Exam: normal breath sounds, lungs clear, No crackles/rales, No rhonchi, No wheezing Cardiovascular Exam: regular rate/rhythm, normal heart sounds, No murmur Extremity Exam: No pedal edema, No swelling Back Exam: normal inspection Final Diagnosis/Problem List - Final Discharge Diagnosis/Problem (1) UTI (urinary tract infection) Current Visit: No Status: Acute Assessment & Plan: To LTCF to finish out 7d of levaquin. (2) Failure of outpatient treatment Current Visit: No Status: Acute (3) Weakness Current Visit: Yes Status: Acute Assessment & Plan: To LTCF for rehab. (4) Dementia Current Visit: Yes Status: Chronic (5) Orthostatic hypotension Current Visit: Yes Status: Chronic (6) Hypertension Current Visit: No Status: Ruled-out Assessment & Plan: Cardiology to consult today on pt's elevated BP in light of orthostasis. (7) Falls frequently Current Visit: Yes Status: Chronic (8) Dysphagia Current Visit: Yes Status: Acute Assessment & Plan: When pt is feeling better, will discuss again with her and with family. She c/ o getting choked intermittently, and had an episode here where she choked on rice. She had not had an EGD that I am aware of. - Discharge Disposition: Skilled Care @ [place] [facility] Condition: Serious Prescriptions: New Levofloxacin [Levaquin] 500 mg PO DAILY #4 tablet Alprazolam 0.25 mg [xanAX 0.25 MG] 0.25 mg PO HS PRN #5 tablet PRN Reason: Anxiety Continue Paroxetine HCl [Paxil] 10 mg PO DAILY Docusate Sodium 100 mg [Colace 100 MG] 100 mg PO DAILY PRN PRN PRN Reason: Constipation Albuterol/Ipratropium 3ml Neb* [DUONEB 0.5-3 MG/3 ml Neb] 3 ml IH Q4-6HPRN PRN PRN Reason: Shortness Of Breath L. Acidophilus/Pectin, Keith [Acidophilus Probiotic Capsule] 1 each PO DAILY Aspirin/Acetaminophen/Caffeine [Excedrin Extra Strength Caplet] 1 each PO Q8H PRN PRN PRN Reason: Headache Calcium Carbonate/Vitamin D3 [Calcium 600 + Vit D Tablet] 1 each PO DAILY Buspirone HCl 5 mg [Buspar 5 mg] 5 mg PO BID Ibuprofen [Advil] 200 mg PO Q12H PRN PRN PRN Reason: Pain Multivitamin [Daily Multivitamin] 1 each PO DAILY Discontinued Alprazolam 0.25 mg [xanAX 0.25 MG] 0.25 mg PO BID PRN PRN PRN Reason: Anxiety Cefaclor [Ceclor] 500 mg PO TID No Action Midodrine HCl 2.5 mg PO BID Instructions: Contusion, Prevent Falls Follow up with: HUNTER POOL [Primary Care Provider] - Forms: Patient Portal Information
[2017-08-04] MEDS: Acidophilus TABLET PO SCH (10:24)
[2017-08-04] MEDS: Paxil 20 MG PO SCH (10:24)
[2017-08-04] MEDS: BUSPAR 5 MG PO SCH (10:25)
[2017-08-04] MEDS: ENOXAPARIN SODIUM SQ SCH (10:25)
[2017-08-04] MEDS: Norco 10/325 MG Tablet PO PRN (12:04)
[2017-08-04 16:21] VITALS: BP 128/60; PULSE 88; O2SAT 92
[2017-08-04] MEDS ORDERED: PROAMATINE 5 MG PO SCH (22:00)
== END 2017-08-04 18:00 | DRG 690 ==
LOC: ED 13:07 → MED SURG 16:35
PROVIDERS: ADMIT Family Medicine; ATTEND Family Medicine
DX: N30.00 Acute cystitis without hematuria (principal); R53.1 Weakness; G30.9 Alzheimer's disease, unspecified; F02.80 Dementia in other diseases classified elsewhere, unspecified severity, without behavioral disturbance, psychotic disturbance, mood disturbance, and anxiety; I95.1 Orthostatic hypotension; I10 Essential (primary) hypertension; R29.6 Repeated falls; R13.14 Dysphagia, pharyngoesophageal phase; J44.9 Chronic obstructive pulmonary disease, unspecified; M19.90 Unspecified osteoarthritis, unspecified site; F41.9 Anxiety disorder, unspecified; Z78.9 Other specified health status
CPT/HCPCS: 36000; 36415; 70450; 72125; 73562; 80048; 81000; 82746; 82962; 84484; 85025; 85027; 85610; 87077; 87086; 87186; 93005; 93041; 93306; 94760; 96360; 96361; 99285; J0696; J1200; J1650; J1956; Q3014; 97110-GP; A9270-GY

== ENCOUNTER 2017-12-25 08:31 | Observation (INO) | payer MEDICARE, OTHER ==
--- NOTE | 2017-12-25 08:58 | ERPHSYRPT ---
- History of Present Illness Time Seen by Provider: 12/25/17 08:50 Source: patient, family, EMS, assisted records Exam Limitations: other (dementia) Physician History: The patient is an 82-year-old female with family brought in by ambulance from a assisted where she reportedly complained of a racing and pounding heart this morning. Her blood pressure was also elevated. The patient has dementia and does not always provided accurate history. She stated that she was nauseated this morning. She did not vomit. She had neck pain. The neck pain is intermittent and chronic. She no longer has neck pain now that we have placed her head on a pillow. Her has been in the hospital for several weeks. Her past medical history is significant for hypotension, weakness, anxiety, dementia, and pancreatitis. Timing/Duration: today Severity: mild Modifying Factors: Improves With: nothing Associated Symptoms: nausea, No vomiting, No abdominal pain Allergies/Adverse Reactions: Sulfa (Sulfonamide Antibiotics) Allergy (Mild, Verified 12/25/17 08:55) sulfamethoxazole [From Bactrim] Allergy (Mild, Verified 12/25/17 08:55) tetracycline Allergy (Mild, Verified 12/25/17 08:55) trimethoprim [From Bactrim] Allergy (Mild, Verified 12/25/17 08:55) amoxicillin Allergy (Verified 12/25/17 08:55) Vomiting azithromycin Allergy (Verified 12/25/17 08:55) UNKWON codeine Allergy (Verified 12/25/17 08:55) UNSURE Home Medications: Albuterol/Ipratropium 3ml Neb* [DUONEB 0.5-3 MG/3 ml Neb] 3 ml IH Q4-6HPRN PRN 07/30/17 [History] Buspirone HCl 5 mg [Buspar 5 mg] 5 mg PO BID 07/30/17 [History] Calcium Carbonate/Vitamin D3 [Calcium 600 + Vit D Tablet] 1 each PO DAILY [History] Docusate Sodium 100 mg [Colace 100 MG] 100 mg PO DAILY PRN PRN 07/30/17 [ History] Ibuprofen [Advil] 200 mg PO Q12H PRN PRN 07/30/17 [History] L. Acidophilus/Pectin, [place] [Acidophilus Probiotic Capsule] 1 each PO DAILY [History] Multivitamin [Daily Multivitamin] 1 each PO DAILY 07/30/17 [History] Paroxetine HCl [Paxil] 10 mg PO DAILY 07/30/17 [History] Fludrocortisone Acetate 0.1 mg PO DAILY 12/25/17 [History] Trazodone HCl 50 mg [Desyrel 50 mg] 50 mg PO HS 12/25/17 [History] Hx Tetanus, Diphtheria Vaccination/Date Given: Yes Hx Influenza Vaccination/Date Given: No Hx Pneumococcal Vaccination/Date Given: Yes - Review of Systems Constitutional: No Fever, No Chills Eyes: No Symptoms Ears, Nose, & Throat: No Symptoms Respiratory: No Cough, No Dyspnea Cardiac: No Chest Pain, No Edema, No Syncope Abdominal/Gastrointestinal: Nausea, No Abdominal Pain, No Vomiting, No Diarrhea Genitourinary Symptoms: No Dysuria Musculoskeletal: No Back Pain, No Neck Pain Skin: No Rash Neurological: No Dizziness, No Focal Weakness, No Sensory Changes Psychological: No Symptoms Endocrine: No Symptoms Hematologic/Lymphatic: No Symptoms Immunological/Allergic: No Symptoms All Other Systems: Reviewed and Negative - Past Medical History Pertinent Past Medical History: Yes Neurological History: No Pertinent History ENT History: Cataracts Cardiac History: High Cholesterol, Hypertension Respiratory History: COPD, Other Endocrine Medical History: Other Musculoskeletal History: Arthritis GI Medical History: Diverticulosis, Irritable Bowel History: No Pertinent History Psycho-Social History: Anxiety Female Reproductive Disorders: Abnormal Uterine Bleeding, Other Other Medical History: has had cataracts removed, had partial thyroidectomy in 1965 non cancerous and has not had to take meds since, dx with copd but denies sob hx of smoker, has had colonoscopy had diverticulosis, had partial hysterectomy 1985 for heavy bleeding, has area in lung that Dr. Hogan is monitoring and had PET scan to check that area and an area showed up in colon so doing colonoscopy - Past Surgical History Past Surgical History: Yes Neuro Surgical History: No Pertinent History Cardiac: No Pertinent History Respiratory: No Pertinent History Gastrointestinal: Appendectomy Genitourinary: No Pertinent History Musculoskeletal: No Pertinent History Female Surgical History: Hysterectomy Other Surgical History: partial thyroidectomy 1965 noncancerous and has been on no meds since. bladder tuck 2003, colonoscopy 2007, cataracts removed 2007, vericose veins removed 1969. - Social History Smoking Status: Former smoker Exposure to second hand smoke: No Alcohol Use: None Drug Use: none Patient Lives Alone: No Significant Family History: no pertinent family hx - Nursing Vital Signs Nursing Vital Signs: Initial Vital Signs Temperature 98.3 F 12/25/17 08:33 Pulse Rate 81 12/25/17 08:33 Respiratory Rate 16 12/25/17 08:33 Blood Pressure 194/101 12/25/17 08:33 O2 Sat by Pulse Oximetry 92 L 12/25/17 08:33 Pain Scale Pain Intensity 0 - Physical Exam General Appearance: no apparent distress, alert Eye Exam: PERRL/EOMI, eyes nml inspection Ears, Nose, Throat Exam: normal ENT inspection, TMs normal, pharynx normal, moist mucous membranes Neck Exam: normal inspection, non-tender, supple, full range of motion Respiratory Exam: normal breath sounds, lungs clear, No respiratory distress Cardiovascular Exam: regular rate/rhythm, normal heart sounds, normal peripheral pulses Gastrointestinal/Abdomen Exam: soft, normal bowel sounds, No tenderness, No mass Pelvic Exam: not done Rectal Exam: not done Back Exam: normal inspection, normal range of motion, No CVA tenderness, No vertebral tenderness Extremity Exam: normal inspection, normal range of motion, pelvis stable Neurologic Exam: alert, cooperative, normal mood/affect, No slurred speech Skin Exam: normal color, warm, dry, No rash Lymphatic Exam: No adenopathy SpO2 Interpretation: normal - Course EKG Interpreted by Me: RATE, Sinus Rhythm, NORMAL AXIS, NORMAL INTERVALS, NORMAL QRS, NORMAL ST-T - Radiology Exams Chest X-ray Interpretation: Reviewed by me, Teleradiologist Report, Negative (per DR Strong) Abdomen X-ray Interpretation: Reviewed by me, Teleradiologist Report, Negative, Other ( mild fecal stasis without obstruction per Dr Strong.) Ordered Tests: Active Orders 24 hr Category Date Time Status EKG-ER Only STAT Care 12/25/17 09:02 Active IV Insertion STAT Care 12/25/17 09:02 Active CHEST 2 VIEWS (PA AND LAT) Stat Exams 12/25/17 09:04 Completed KUB Stat Exams 12/25/17 09:03 Completed CBC W DIFF Stat Lab 12/25/17 09:15 Completed CMP Stat Lab 12/25/17 09:15 Completed LIPASE Stat Lab 12/25/17 09:15 Completed TROPONIN Q3H Lab 12/25/17 09:15 Completed TROPONIN Q3H Lab 12/25/17 12:15 Ordered TROPONIN Q3H Lab 12/25/17 15:15 Ordered TROPONIN Q3H Lab 12/25/17 18:15 Ordered TROPONIN Q3H Lab 12/25/17 21:15 Ordered UA W/ MICROSCOPIC Stat Lab 12/25/17 10:00 Results Medication Summary Discontinued Medications Generic Name Dose Route Start Last Admin Trade Name Freq PRN Reason Stop Dose Admin Labetalol HCl 10 mg 12/25/17 10:23 Trandate 20 Mg/5 Ml Syringe IV 12/25/17 10:24 STAT ONE Lab/Rad Data: Laboratory Result Diagrams 12/25/17 09:15 12/25/17 09:15 Laboratory Results 12/25/17 12/25/17 12/25/17 Range/Units 10:00 09:15 09:15 WBC (4.0-10.5) K/mm3 RBC (4.1-5.4) M/mm3 Hgb (12.0-16.0) gm/dl Hct (35-47) % MCV (78-100) fl MCH (26-32) pg MCHC (32-36) g/dl RDW (11.5-14.0) % Plt Count (150-450) K/mm3 MPV (6-9.5) fl Gran % (36.0-66.0) % Lymphocytes % (24.0-44.0) % Monocytes % (0.0-12.0) % Eosinophils % (0.00-5.0) % Basophils % (0.0-0.4) % Basophils # (0-0.4) Sodium 138 (136-145) mEq/L Potassium 3.9 (3.5-5.1) mEq/L Chloride 100 (98-107) mEq/L Carbon Dioxide 29.2 (21-32) mEq/L Anion Gap 13.0 (5-15) MEQ/L BUN 17 (9-20) mg/dL Creatinine 0.88 (0.55-1.30) mg/dl Estimated GFR > 60 ML/MIN Glucose 99 (70-110) MG/DL Calcium 9.5 (8.5-10.1) mg/dL Total Bilirubin 0.50 (0.2-1.0) mg/dL AST 22 (15-37) U/L ALT 17 (12-78) U/L Alkaline Phosphatase 75 (46-116) U/L Troponin I < 0.017 (0.000-0.056) ng/ml Serum Total Protein 7.6 (6.4-8.2) gm/dL Albumin 3.9 (3.4-5.0) g/dL Lipase 99 (73-393) U/L Ur Collection Type VOID Urine Color YELLOW (YELLOW) Urine Appearance CLEAR (CLEAR) Urine pH 8.0 (5-6) Ur Specific [place] 1.005 (1.005-1.025) Urine Protein TRACE (Negative) Urine Ketones NEGATIVE (NEGATIVE) Urine Blood TRACE NON-HEM (0-5) Carlos/ul Urine Nitrite NEGATIVE (NEGATIVE) Urine Bilirubin NEGATIVE (NEGATIVE) Urine Urobilinogen NORMAL (0-1) mg/dL Ur Leukocyte Esterase NEGATIVE (NEGATIVE) Urine Microscopic RBC 0-2 (0-2) /HPF Urine Microscopic WBC Pending Ur Epithelial Cells RARE (FEW) /HPF Urine Bacteria FEW (NEGATIVE) /HPF Urine Culture Reflexed NO (NO) Urine Glucose NEGATIVE (NEGATIVE) mg/dL Specimen Received 12/25/17 1006 12/25/17 Range/Units 09:15 WBC 5.6 (4.0-10.5) K/mm3 RBC 5.13 (4.1-5.4) M/mm3 Hgb 13.4 (12.0-16.0) gm/dl Hct 41.0 (35-47) % MCV 79.9 (78-100) fl MCH 26.1 (26-32) pg MCHC 32.7 (32-36) g/dl RDW 16.4 H (11.5-14.0) % Plt Count 226 (150-450) K/mm3 MPV 9.6 H (6-9.5) fl Gran % 65.6 (36.0-66.0) % Lymphocytes % 20.6 L (24.0-44.0) % Monocytes % 7.8 (0.0-12.0) % Eosinophils % 5.3 H (0.00-5.0) % Basophils % 0.7 (0.0-0.4) % Basophils # 0.04 (0-0.4) Sodium (136-145) mEq/L Potassium (3.5-5.1) mEq/L Chloride (98-107) mEq/L Carbon Dioxide (21-32) mEq/L Anion Gap (5-15) MEQ/L BUN (9-20) mg/dL Creatinine (0.55-1.30) mg/dl Estimated GFR ML/MIN Glucose (70-110) MG/DL Calcium (8.5-10.1) mg/dL Total Bilirubin (0.2-1.0) mg/dL AST (15-37) U/L ALT (12-78) U/L Alkaline Phosphatase (46-116) U/L Troponin I (0.000-0.056) ng/ml Serum Total Protein (6.4-8.2) gm/dL Albumin (3.4-5.0) g/dL Lipase (73-393) U/L Ur Collection Type Urine Color (YELLOW) Urine Appearance (CLEAR) Urine pH (5-6) Ur Specific [place] (1.005-1.025) Urine Protein (Negative) Urine Ketones (NEGATIVE) Urine Blood (0-5) Carlos/ul Urine Nitrite (NEGATIVE) Urine Bilirubin (NEGATIVE) Urine Urobilinogen (0-1) mg/dL Ur Leukocyte Esterase (NEGATIVE) Urine Microscopic RBC (0-2) /HPF Urine Microscopic WBC Ur Epithelial Cells (FEW) /HPF Urine Bacteria (NEGATIVE) /HPF Urine Culture Reflexed (NO) Urine Glucose (NEGATIVE) mg/dL Specimen Received - Progress Progress: improved Discussed with : Rocío Will see patient in: hospital (observation) Counseled pt/family regarding: lab results, diagnosis, rad results - Departure Time of Disposition: 10:44 Departure Disposition: Observation (per Dr Alford) Clinical Impression: Chest pain, Hypertension Condition: Stable Critical Care Time: No Referrals: CARMEN MELENDEZ [LOCATION] -
[2017-12-25 09:25] LABS: BASOPHIL % 0.7 % (0.0-0.4); Basophil (Absolute #) 0.04 (0-0.4); Eosinophil % 5.3 % (0.00-5.0); Granulocytes % 65.6 % (36.0-66.0); Hemoglobin 13.4 gm/dl (12.0-16.0); Lymphocyte (Absolute #) 1.16 (1.0-4.6); Lymphocytes % 20.6 % (24.0-44.0); Mean Cell Volume 79.9 fl (78-100); Mean Corpuscular Hemoglobin 26.1 pg (26-32); Mean Corpuscular Hgb Concent. 32.7 g/dl (32-36); Mean Platelet Volume 9.6 fl (6-9.5); Monocyte (Absolute #) 0.44 (0.0-1.3); Monocytes % 7.8 % (0.0-12.0); Platelet Count 226 K/mm3 (150-450); Red Blood Count 5.13 M/mm3 (4.1-5.4); Red Cell Distribution Width 16.4 % (11.5-14.0); White Blood Count 5.6 K/mm3 (4.0-10.5)
--- NOTE | 2017-12-25 09:44 | XRAY ---
Indication: Chest pain. Comparison: May 13, 2017. PA/lateral chest unchanged again hyperinflated and clear with incidental left lung calcified granulomas. Heart and mediastinal structures within normal limits. Bony thorax intact again with mild osteopenia and degenerative changes. Impression: Stable nonacute hyperinflated chest with chronic features.
[2017-12-25 09:47] LABS: ALBUMIN 3.9 g/dL (3.4-5.0); ALKALINE PHOSPHATASE 75 U/L (46-116); BLOOD UREA NITROGEN 17 mg/dL (9-20); CHLORIDE 100 mEq/L (98-107); Calcium 9.5 mg/dL (8.5-10.1); Carbon Dioxide 29.2 mEq/L (21-32); Creatinine 1 0.88 mg/dl (0.55-1.30); Glucose 99 MG/DL (70-110); LIPASE 99 U/L (73-393); Potassium 3.9 mEq/L (3.5-5.1); SGOT/AST 22 U/L (15-37); SGPT/ALT 17 U/L (12-78); SODIUM 138 mEq/L (136-145); Total Protein 7.6 gm/dL (6.4-8.2)
--- NOTE | 2017-12-25 09:47 | XRAY ---
Indication: Nausea and weakness. Comparison: February 01, 2016. KUB again nonacute and nonobstructed. There is now mild scattered colonic fecal debris. Solid organs unremarkable. Osseous structures intact again with osteopenia, multilevel degenerative spondylosis, and mild scoliosis. There remains heavy aortic calcifications. Lung bases clear. Impression: Mild fecal stasis without obstruction.
[2017-12-25 10:07] LABS: Appearance CLEAR (CLEAR); Bilirubin NEGATIVE (NEGATIVE); Blood TRACE NON-HEM Ery/ul (0-5); Glucose NEGATIVE (NEGATIVE); Ketones NEGATIVE (NEGATIVE); Leukocyte Esterase NEGATIVE (NEGATIVE); Nitrite NEGATIVE (NEGATIVE); Protein,Urine Dip TRACE (Negative); Specific Gravity 1.005 (1.005-1.025); Urobilinogen NORMAL mg/dL (0-1)
[2017-12-25 10:08] LABS: Bacteria FEW /HPF (NEGATIVE); Epithelial Cells RARE /HPF (FEW)
[2017-12-25] MEDS ORDERED: TRANDATE 20 MG/5 ML SYRINGE IV ONE ×2 (10:23→10:51)
[2017-12-25] MEDS ORDERED: BABY ASPIRIN 81 MG CHEW PO ONE (10:45)
[2017-12-25] MEDS ORDERED: BABY ASPIRIN 81 MG CHEW ONE (10:51)
[2017-12-25] MEDS ORDERED: TRANDATE 20 MG/5 ML SYRINGE IV PRN (11:48)
[2017-12-25] MEDS ORDERED: Zofran 4 MG/2 ML VIAL IV PRN (11:48)
[2017-12-25] MEDS ORDERED: Colace 100 MG PO PRN (14:13)
[2017-12-25] MEDS ORDERED: CAFFEINE PO PRN (14:13)
[2017-12-25] MEDS ORDERED: ASPIRIN PO PRN (14:13)
[2017-12-25] MEDS ORDERED: ACETAMINOPHEN PO PRN (14:13)
[2017-12-25] MEDS ORDERED: MEDICATION INTERVENTION MC SCH ×2 (14:30→15:45)
--- NOTE | 2017-12-25 15:06 | PCM.HP ---
History of Present Illness - Chief Complaint Chief Complaint: chest pain History of Present Illness: is a 82 year old female pt from [facility], previously a patient of mine, who was brought to ER today with elevated BP. Pt with dementia, she has a hard time remembering why she came in. In ER she had various complaints (neck pain, back pain) but not currently complaining of any specific pain. She does complain of urinating quite frequently, her daughter in law states it is a good amount of urine each time. Pt states nurse at [facility] told her she urinates more than anyone they've ever had. Family and pt deny excessive drinking. She has a history of orthostatic hypotension, about 6 mo ago had several episodes of falling and nearly falling with low bp so was placed on fludrocortisone and midodrine. [facility]. Pt has a history of hyponatremia (exacerbated by SSRIs) and diarrhea v constipation. not currently complaining of bowel issues. - Review of Systems All Other Systems: Unable due to dementia Medications & Allergies Home Medications: Home Medication List Buspirone HCl 5 mg [Buspar 5 mg] 5 mg PO BID 07/30/17 [History Confirmed 12/25/17] Calcium Carbonate/Vitamin D3 [Calcium 600 + Vit D Tablet] 1 each PO DAILY [History Confirmed 12/25/17] Docusate Sodium 100 mg [Colace 100 MG] 100 mg PO DAILY PRN PRN 07/30/17 [ History Confirmed 12/25/17] Ibuprofen [Advil] 200 mg PO Q12H PRN PRN 07/30/17 [History Confirmed 12/25/17] L. Acidophilus/Pectin, [place] [Acidophilus Probiotic Capsule] 1 each PO DAILY [History Confirmed 12/25/17] Multivitamin [Daily Multivitamin] 1 each PO DAILY 07/30/17 [History Confirmed ] Midodrine HCl 5 mg [Proamatine 5 mg] 5 mg PO BID #30 tablet 08/04/17 [Rx Confirmed 12/25/17] Acetaminophen 325 mg [Tylenol 325 mg] 650 mg PO Q4HPRN PRN 12/25/17 [ History Confirmed 12/25/17] Acetaminophen [Tylenol Arthritis] 650 mg PO Q6HPRN PRN 12/25/17 [History Confirmed 12/25/17] Aspirin/Acetaminophen/Caffeine [Excedrin Migraine Caplet] 1 each PO Q8HPRN PRN 12/25/17 [History Confirmed 12/25/17] Escitalopram Oxalate 10 mg [Lexapro 10 MG] 10 mg PO DAILY 12/25/17 [History Confirmed 12/25/17] Fludrocortisone Acetate 0.1 mg PO DAILY 12/25/17 [History Confirmed 12/25/17] Naproxen Sodium 220 mg [Aleve 220 MG] 220 mg PO BID PRN PRN 12/25/17 [ History Confirmed 12/25/17] Trazodone HCl 50 mg [Desyrel 50 mg] 50 mg PO HS 12/25/17 [History Confirmed 12/25/17] Allergies/Adverse Reactions: Allergies Allergy/AdvReac Type Severity Reaction Status Date / Time Sulfa (Sulfonamide Allergy Mild Verified 12/25/17 08:55 Antibiotics) sulfamethoxazole Allergy Mild Verified 12/25/17 08:55 [From Bactrim] tetracycline Allergy Mild Verified 12/25/17 08:55 trimethoprim [From Bactrim] Allergy Mild Verified 12/25/17 08:55 amoxicillin Allergy Vomiting Verified 12/25/17 08:55 azithromycin Allergy UNKWON Verified 12/25/17 08:55 codeine Allergy UNSURE Verified 12/25/17 08:55 erythromycin base Allergy Verified 12/25/17 11:46 - Past Medical History Past Medical History: Yes Neurological History: No Pertinent History, Dementia ENT History: Cataracts Cardiac History: High Cholesterol, Hypertension Respiratory History: COPD, Other Endocrine Medical History: Other Musculoskelatal History: Arthritis GI Medical History: Diverticulosis, Irritable Bowel History: No Pertinent History Pyscho-Social History: Anxiety Reproductive Disorders: Abnormal Uterine Bleeding, Other Comment: has had cataracts removed, had partial thyroidectomy in 1965 non cancerous and has not had to take meds since, dx with copd but denies sob hx of smoker, has had colonoscopy had diverticulosis, had partial hysterectomy 1985 for heavy bleeding, has area in lung that Dr. Hogan is monitoring and had PET scan to check that area and an area showed up in colon so doing colonoscopy. 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 bladder tuck 2003, colonoscopy 2007, cataracts removed 2007, vericose veins removed 1969. - Social History Smoking Status: Former smoker Exposure to second hand smoke: No Alcohol: None Drug Use: none Significant Family History: no pertinent family hx - Physical Exam Vital Signs: Vital Signs - 24 hr Temp Pulse Resp BP Pulse Ox 12/25/17 13:29 78 136/61 12/25/17 12:12 97.9 F 80 20 186/82 93 L 12/25/17 12:00 93 L 12/25/17 11:40 97.9 F 80 20 186/82 93 L 12/25/17 11:14 97.9 F 71 18 186/82 93 L 12/25/17 10:54 73 18 206/87 98 12/25/17 10:22 75 23 183/89 93 L 12/25/17 09:22 98.3 F 78 16 198/81 92 L 12/25/17 08:33 98.3 F 81 16 194/101 92 L General Appearance: no apparent distress, alert Neurologic Exam: cooperative, other (can't remember details of why she came in.) Eye Exam: eyes nml inspection Ears, Nose, Throat Exam: moist mucous membranes Neck Exam: normal inspection, supple Respiratory Exam: normal breath sounds, crackles/rales (RLL as usual), No rhonchi, No wheezing Cardiovascular Exam: regular rate/rhythm, normal heart sounds, No murmur Gastrointestinal/Abdomen Exam: soft, normal bowel sounds, No tenderness, No distention, No mass, No guarding, No rebound Extremity Exam: normal inspection, No pedal edema, No swelling Skin Exam: normal color, warm, dry, No rash Assessment/Plan (1) Hypertensive urgency Current Visit: Yes Status: Acute Assessment & Plan: Latest BP 136 systolic, otherwise was 180-200 or more systolic since admission. Will hold the midodrine, continue the fludrocortisone, and observe. Code(s): I16.0 - HYPERTENSIVE URGENCY (2) Urinary frequency Current Visit: Yes Status: Chronic Assessment & Plan: sounds like a chronic issue. I think in the past I have hesitated to put her on a med due to her pre-existing dementia. Will start with a very small dose of oxybutinin in the morning. UA is completely negative. Code(s): R35.0 - FREQUENCY OF MICTURITION (3) Anxiety Current Visit: No Status: Chronic Code(s): F41.9 - ANXIETY DISORDER, UNSPECIFIED (4) Dementia Current Visit: No Status: Chronic Qualifiers: Alzheimer's disease onset: unspecified onset Dementia behavioral disturbance: without behavioral disturbance Code(s): F03.90 - UNSPECIFIED DEMENTIA WITHOUT BEHAVIORAL DISTURBANCE (5) Orthostatic hypotension Current Visit: No Status: Resolved Assessment & Plan: history of - would watch for falls and sx as her bp decreases. Code(s): I95.1 - ORTHOSTATIC HYPOTENSION
[2017-12-25] MEDS: TYLENOL 325 MG PO PRN ×2 (18:12→23:44)
[2017-12-25] MEDS: DESYREL 50 MG PO SCH (23:44)
[2017-12-25] MEDS: BUSPAR 5 MG PO SCH (23:44)
[2017-12-26 06:01] LABS: BASOPHIL % 0.7 % (0.0-0.4); Basophil (Absolute #) 0.04 (0-0.4); Eosinophil % 6.8 % (0.00-5.0); Eosinophil (Absolute #) 0.41 (0-0.5); Granulocyte Absolute (ANC) 3.89 (1.4-6.9); Granulocytes % 64.1 % (36.0-66.0); Hematocrit 35.3 % (35-47); Hemoglobin 11.5 gm/dl (12.0-16.0); Lymphocyte (Absolute #) 1.23 (1.0-4.6); Lymphocytes % 20.3 % (24.0-44.0); Mean Cell Volume 79.9 fl (78-100); Mean Corpuscular Hgb Concent. 32.6 g/dl (32-36); Mean Platelet Volume 9.9 fl (6-9.5); Monocyte (Absolute #) 0.49 (0.0-1.3); Monocytes % 8.1 % (0.0-12.0); Platelet Count 218 K/mm3 (150-450); Red Blood Count 4.42 M/mm3 (4.1-5.4); Red Cell Distribution Width 16.1 % (11.5-14.0); White Blood Count 6.1 K/mm3 (4.0-10.5)
[2017-12-26 07:32] LABS: ANION GAP 17.7 MEQ/L (5-15); Calcium 8.9 mg/dL (8.5-10.1); Carbon Dioxide 26.6 mEq/L (21-32); Creatinine 1 0.95 mg/dl (0.55-1.30); Potassium 3.7 mEq/L (3.5-5.1)
[2017-12-26] MEDS: BUSPAR 5 MG PO SCH ×2 (09:01→22:59)
[2017-12-26] MEDS: Lexapro 10 MG PO SCH (09:01)
[2017-12-26] MEDS: Ditropan 5 MG PO SCH ×2 (09:01→23:00)
[2017-12-26] MEDS ORDERED: FLUDROCORTISONE ACETATE 0.1 MG PO SCH (10:00)
[2017-12-26] MEDS ORDERED: OCEAN Nasal Spray NS PRN (10:51)
[2017-12-26] MEDS: NORVASC 5 MG PO SCH (12:02)
[2017-12-26] MEDS: ENOXAPARIN SODIUM SQ SCH (12:03)
--- NOTE | 2017-12-26 13:08 | PCM.NOTE ---
Date and Time: 12/26/17 1303 Subjective Assessment: She says in general she just doesn't feel well but can't pinpoint anything specifically. Her daughter is at the bedside. - Review of Systems Constitutional: Fatigue Eyes: No Symptoms Ears, Nose, & Throat: No Symptoms Respiratory: No Symptoms Cardiac: No Symptoms Abdominal/Gastrointestinal: No Symptoms Genitourinary Symptoms: No Symptoms Musculoskeletal: Arthralgias Objective Exam General Appearance: no apparent distress, alert Neurologic Exam: alert, cooperative, normal mood/affect Skin Exam: normal color, warm, dry, No rash Respiratory Exam: normal breath sounds, lungs clear, No crackles/rales, No rhonchi, No wheezing Cardiovascular Exam: regular rate/rhythm, normal heart sounds, No murmur, No friction rub, No gallop Gastrointestinal/Abdomen Exam: soft, normal bowel sounds, No tenderness, No distention, No mass Extremity Exam: normal inspection, other (no c/c/e) OBJECTIVE DATA Vital Signs: Vital Signs - 24 hr Temp Pulse Resp BP Pulse Ox 12/26/17 11:51 97.8 F 74 16 148/68 94 L 12/26/17 08:09 93 L 12/26/17 07:34 98.4 F 92 H 20 192/86 93 L 12/26/17 04:05 98.2 F 73 19 175/70 96 12/26/17 00:58 98.1 F 79 19 174/74 95 12/25/17 20:06 97.9 F 70 20 162/72 92 L 12/25/17 19:32 95 12/25/17 16:39 97.5 F 76 18 130/68 94 L 12/25/17 13:29 78 136/61 Oxygen-Last 24 hours O2 Percentage 2 Liters = 28% Oxygen Flowrate (L/min)-RT 2 Pain Assessment - Last Documented Pain Intensity 0 Pain Scale Used 0-10 Pain Scale,FLACC Intake and Output: Intake & Output 12/24/17 12/25/17 12/26/17 12/27/17 06:59 06:59 06:59 06:59 Intake Total 840 120 Output Total 675 Balance 165 120 Weight 49 kg Lab Results: Lab Results-Last 24 Hours 12/25/17 12/25/17 12/25/17 Range/Units 12:15 15:15 18:21 WBC (4.0-10.5) K/mm3 RBC (4.1-5.4) M/mm3 Hgb (12.0-16.0) gm/dl Hct (35-47) % MCV (78-100) fl MCH (26-32) pg MCHC (32-36) g/dl RDW (11.5-14.0) % Plt Count (150-450) K/mm3 MPV (6-9.5) fl Gran % (36.0-66.0) % Lymphocytes % (24.0-44.0) % Monocytes % (0.0-12.0) % Eosinophils % (0.00-5.0) % Basophils % (0.0-0.4) % Basophils # (0-0.4) Sodium (136-145) mEq/L Potassium (3.5-5.1) mEq/L Chloride (98-107) mEq/L Carbon Dioxide (21-32) mEq/L Anion Gap (5-15) MEQ/L BUN (9-20) mg/dL Creatinine (0.55-1.30) mg/dl Estimated GFR ML/MIN Glucose (70-110) MG/DL Calcium (8.5-10.1) mg/dL Troponin I < 0.017 < 0.017 < 0.017 (0.000-0.056) ng/ml 12/25/17 12/26/17 12/26/17 Range/Units 21:33 05:20 05:20 WBC 6.1 (4.0-10.5) K/mm3 RBC 4.42 (4.1-5.4) M/mm3 Hgb 11.5 L (12.0-16.0) gm/dl Hct 35.3 (35-47) % MCV 79.9 (78-100) fl MCH 26.0 (26-32) pg MCHC 32.6 (32-36) g/dl RDW 16.1 H (11.5-14.0) % Plt Count 218 (150-450) K/mm3 MPV 9.9 H (6-9.5) fl Gran % 64.1 (36.0-66.0) % Lymphocytes % 20.3 L (24.0-44.0) % Monocytes % 8.1 (0.0-12.0) % Eosinophils % 6.8 H (0.00-5.0) % Basophils % 0.7 (0.0-0.4) % Basophils # 0.04 (0-0.4) Sodium 142 (136-145) mEq/L Potassium 3.7 (3.5-5.1) mEq/L Chloride 101 (98-107) mEq/L Carbon Dioxide 26.6 (21-32) mEq/L Anion Gap 17.7 H (5-15) MEQ/L BUN 22 H (9-20) mg/dL Creatinine 0.95 (0.55-1.30) mg/dl Estimated GFR 60 ML/MIN Glucose 120 H (70-110) MG/DL Calcium 8.9 (8.5-10.1) mg/dL Troponin I < 0.017 (0.000-0.056) ng/ml Assessment/Plan (1) Hypertension Current Visit: Yes Status: Acute Assessment & Plan: Will start low dose of amlodipine 2.5 mg po today. She has toprolol IV ordered as needed for hypertension. Her nurse is also going to check her orthostatic vitals. Code(s): I10 - ESSENTIAL (PRIMARY) HYPERTENSION (2) Urinary frequency Current Visit: Yes Status: Chronic Assessment & Plan: She was started on oxybutynin for this yesterday by Dr. Alford. Code(s): R35.0 - FREQUENCY OF MICTURITION (3) Anxiety Current Visit: No Status: Chronic Code(s): F41.9 - ANXIETY DISORDER, UNSPECIFIED (4) Dementia Current Visit: No Status: Chronic Qualifiers: Alzheimer's disease onset: unspecified onset Dementia behavioral disturbance: without behavioral disturbance Code(s): F03.90 - UNSPECIFIED DEMENTIA WITHOUT BEHAVIORAL DISTURBANCE
--- NOTE | 2017-12-26 21:51 | XRAY ---
Indication: Pain following fall. Comparison: None AP pelvis and 2 views of the right hip demonstrates osteopenia, bilateral greater trochanteric spurring, and mild lower lumbar degenerative spondylosis. No other bony, articular, or soft tissue abnormalities. Comment: Preliminary interpretation was made by [facility]. No critical discrepancy.
[2017-12-26] MEDS: DESYREL 50 MG PO SCH (22:59)
[2017-12-27] MEDS: TYLENOL 325 MG PO PRN (01:28)
[2017-12-27 07:01] VITALS: O2SAT 93
[2017-12-27] MEDS: Ditropan 5 MG PO SCH (08:31)
[2017-12-27] MEDS: Lexapro 10 MG PO SCH (08:31)
[2017-12-27] MEDS: NORVASC 5 MG PO SCH (08:31)
[2017-12-27] MEDS: BUSPAR 5 MG PO SCH (08:31)
--- NOTE | 2017-12-27 10:33 | PCM.DCORD ---
- Discharge Discharge Date: 12/27/17 Disposition: DC TO ANY "OTHER" [facility] Condition: Good Prescriptions: New Amlodipine Besylate 5 mg [Norvasc 5 mg] 2.5 mg PO BID tablet Oxybutynin Chloride 2.5 mg PO BID #30 tablet Continue Docusate Sodium 100 mg [Colace 100 MG] 100 mg PO DAILY PRN PRN PRN Reason: Constipation L. Acidophilus/Pectin, [place] [Acidophilus Probiotic Capsule] 1 each PO DAILY Calcium Carbonate/Vitamin D3 [Calcium 600 + Vit D Tablet] 1 each PO DAILY Buspirone HCl 5 mg [Buspar 5 mg] 5 mg PO BID Multivitamin [Daily Multivitamin] 1 each PO DAILY Fludrocortisone Acetate 0.1 mg PO DAILY Trazodone HCl 50 mg [Desyrel 50 mg] 50 mg PO HS Escitalopram Oxalate 10 mg [Lexapro 10 MG] 10 mg PO DAILY Naproxen Sodium 220 mg [Aleve 220 MG] 220 mg PO BID PRN PRN PRN Reason: Mild Pain Acetaminophen 325 mg [Tylenol 325 mg] 650 mg PO Q4HPRN PRN PRN Reason: Pain And/Or Fever Aspirin/Acetaminophen/Caffeine [Excedrin Migraine Caplet] 1 each PO Q8HPRN PRN PRN Reason: Headache Discontinued Ibuprofen [Advil] 200 mg PO Q12H PRN PRN PRN Reason: Pain Midodrine HCl 5 mg [Proamatine 5 mg] 5 mg PO BID #30 tablet Acetaminophen [Tylenol Arthritis] 650 mg PO Q6HPRN PRN PRN Reason: Pain Additional Instructions: Please check blood pressure bid for 1 week. Monitor bottom as she has a sore area here. Donut pillow if tolerated to keep pressure off buttocks. Follow up with: CHANDANA ENCARNACION MD [Primary Care Provider] - 1 Week
[2017-12-27 11:02] VITALS: BP 167/76; PULSE 78
[2017-12-27] MEDS: ENOXAPARIN SODIUM SQ SCH (13:27)
[2017-12-27] MEDS ORDERED: NORVASC 5 MG PO SCH (22:00)
--- NOTE | 2017-12-31 14:03 | DS ---
DISCHARGE DIAGNOSES: 1) HYPERTENSION. 2) URINARY FREQUENCY. 3) ANXIETY. 4) DEMENTIA. DISCHARGE PHYSICAL EXAMINATION: VITALS: Temperature current 98.4F, temperature max 98.4F, heart rate 74 to 83, respiratory rate 16 to 20, blood pressure 123 to 191 over 58 to 87, weight 49 kg. Oxygen saturation 93 to 98% on room air to 2 liters nasal cannula. GENERAL: The patient is lying in bed a pleasant lady. She is alert and talkative. distress. CVS: She has a regular rate and rhythm. No murmurs, gallops or rubs are appreciated. CHEST: Clear to auscultation bilaterally. No crackles or wheezes. ABDOMEN: Soft, nontender, nondistended with normal bowel sounds. EXTREMITIES: No clubbing, cyanosis or edema. SKIN: Around her tailbone she has an area of erythema that is nonblanching. HOSPITAL COURSE: 1) HYPERTENSION: She has a history of orthostatic hypotension. We did check orthostatics here and they were normal. Her home dose of Midodrine was held while she was here. She was started on amlodipine 2.5 mg in the morning and this was started on 12/26/2017 and with this her blood pressure was better controlled during the day but again high in the evening so I am going to discharge her with amlodipine 2.5 mg p.o. b.i.d. and have [facility] check her blood pressure twice a day for a week and follow up with physician caring for her at [facility]. 2) URINARY FREQUENCY: Dr. Alford started her on oxybutynin. UA was negative. 3) ANXIETY: She was continued on her home medication. 4) DEMENTIA: She was continued on her home medications. DISCHARGE MEDICATIONS: Please see the discharge order. DISPOSITION: The patient was discharged back to [facility].
== END 2017-12-27 15:00 | disposition home or self-care (01) ==
LOC: ED 08:31 → MED SURG 10:56
PROVIDERS: ADMIT Family Medicine; ATTEND Family Medicine
DX: I16.0 Hypertensive urgency (principal); R35.0 Frequency of micturition; F41.9 Anxiety disorder, unspecified; F03.90 Unspecified dementia, unspecified severity, without behavioral disturbance, psychotic disturbance, mood disturbance, and anxiety; I95.1 Orthostatic hypotension; Z79.899 Other long term (current) drug therapy
CPT/HCPCS: 36415; 71046; 73502; 74018; 80048; 80053; 81000; 83690; 84484; 85025; 93005; 93268; 94760; 99285; G0378; J1650; A9270-GY

== ENCOUNTER 2019-03-08 20:53 | Emergency (ER) | payer MEDICARE, OTHER ==
--- NOTE | 2019-03-08 21:37 | ERPHSYRPT ---
- History of Present Illness Time Seen by Provider: 03/08/19 21:24 Source: patient Exam Limitations: no limitations Patient Subjective Stated Complaint: Pt gives different stories about what happened. According to detention staff and ems pt had unwittnessed fall from bed. Pt denies pain when asked. Triage Nursing Assessment: [place]/warm/dry, resp easy, alert to self and place which is baseline, pt is non-ambulatory, contractures noted. pt c/o pain with palpation of rt hip. Physician History: 83-year-old white female brought from detention patient apparently slipped out of bed patient states that she feels like she landed on her bottom she was noted by the nurse on arrival to have some right hip pain currently denies any pain. Patient denies hitting her head no loss of consciousness no neck pain. Past medical history includes dementia, cataracts, COPD, hyperlipidemia, high blood pressure, diverticulosis, or irritable bowel, arthritis, anxiety past surgical history includes cataracts, appendectomy, hysterectomy, partial thyroidectomy, bladder tuck, varicose veins Timing/Duration: today Severity: mild (which limited) Modifying Factors: Improves With: nothing Associated Symptoms: No nausea, No vomiting, No abdominal pain, No shortness of breath, No heartburn, No diaphoresis, No cough, No chills, No chest pain, No fever, No headaches, No loss of appetite, No malaise, No rash, No syncope, No seizure, No weakness Allergies/Adverse Reactions: Sulfa (Sulfonamide Antibiotics) Allergy (Mild, Verified 12/25/17 08:55) sulfamethoxazole [From Bactrim] Allergy (Mild, Verified 12/25/17 08:55) tetracycline Allergy (Mild, Verified 12/25/17 08:55) trimethoprim [From Bactrim] Allergy (Mild, Verified 12/25/17 08:55) amoxicillin Allergy (Verified 12/25/17 08:55) Vomiting azithromycin Allergy (Verified 12/25/17 08:55) UNKWON codeine Allergy (Verified 12/25/17 08:55) UNSURE erythromycin base Allergy (Verified 12/25/17 11:46) Home Medications: Calcium Carbonate/Vitamin D3 [Calcium 600 + Vit D Tablet] 1 each PO DAILY [History] Docusate Sodium 100 mg [Colace 100 MG] 100 mg PO DAILY PRN PRN 07/30/17 [ History] L. Acidophilus/Pectin, [place] [Acidophilus Probiotic Capsule] 1 each PO DAILY [History] Acetaminophen 325 mg [Tylenol 325 mg] 650 mg PO Q4HPRN PRN 12/25/17 [ History] Fludrocortisone Acetate 0.1 mg PO DAILY 12/25/17 [History] Naproxen Sodium 220 mg [Aleve 220 MG] 220 mg PO BID 12/25/17 [History] Ferrous Sulfate 220 mg/5 ml [Ferrous Sulfate (IRON) 220 MG/5 ML] 220 mg PO DIRECTIONS UNKNOWN 03/08/19 [History] Mirtazapine [Remeron] 7.5 mg PO DAILY 03/08/19 [History] Multivitamin [Daily Multivitamin] 1 tab PO DAILY 03/08/19 [History] Oxybutynin Chloride 5 mg PO BID 03/08/19 [History] PANTOPRAZOLE 40 mg Tablet [Protonix 40MG Tablet] 40 mg PO DAILY 03/08/19 [ History] Hx Tetanus, Diphtheria Vaccination/Date Given: Yes Hx Influenza Vaccination/Date Given: Yes Hx Pneumococcal Vaccination/Date Given: Yes Immunizations Up to Date: Yes - Review of Systems Constitutional: Other (elderly white female alert in no acute distress), No Fever, No Chills Eyes: No Symptoms Ears, Nose, & Throat: No Symptoms Respiratory: No Cough, No Dyspnea Cardiac: No Chest Pain, No Edema, No Syncope Abdominal/Gastrointestinal: No Abdominal Pain, No Nausea, No Vomiting, No Diarrhea Genitourinary Symptoms: No Dysuria Musculoskeletal: Other (right hip pain on arrival) Skin: No Rash Neurological: No Dizziness, No Focal Weakness, No Sensory Changes Psychological: No Symptoms Endocrine: No Symptoms All Other Systems: Reviewed and Negative - Past Medical History Pertinent Past Medical History: Yes Neurological History: No Pertinent History, Dementia ENT History: Cataracts Cardiac History: High Cholesterol, Hypertension Respiratory History: COPD, Other Endocrine Medical History: Other Musculoskeletal History: Arthritis GI Medical History: Diverticulosis, Irritable Bowel History: No Pertinent History Psycho-Social History: Anxiety Female Reproductive Disorders: Abnormal Uterine Bleeding, Other Other Medical History: has had cataracts removed, had partial thyroidectomy in 1965 non cancerous and has not had to take meds since, dx with copd but denies sob hx of smoker, has had colonoscopy had diverticulosis, had partial hysterectomy 1985 for heavy bleeding, has area in lung that Dr. Hogan is monitoring and had PET scan to check that area and an area showed up in colon so doing colonoscopy. 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 bladder tuck 2003, colonoscopy 2007, cataracts removed 2007, vericose veins removed 1969. - Social History Smoking Status: Former smoker Exposure to second hand smoke: No Alcohol Use: None Drug Use: none Patient Lives Alone: No Significant Family History: no pertinent family hx - Female History Hx Now: No - Nursing Vital Signs Nursing Vital Signs: Initial Vital Signs Temperature 98.9 F 03/08/19 21:05 Pulse Rate 87 03/08/19 21:05 Respiratory Rate 16 03/08/19 21:05 Blood Pressure 146/63 03/08/19 21:05 O2 Sat by Pulse Oximetry 93 L 03/08/19 21:05 Pain Scale Pain Intensity 5 - Physical Exam General Appearance: no apparent distress, alert Eye Exam: PERRL/EOMI, eyes nml inspection Ears, Nose, Throat Exam: normal ENT inspection, TMs normal, pharynx normal, moist mucous membranes Neck Exam: normal inspection, non-tender, supple, full range of motion Respiratory Exam: normal breath sounds, lungs clear, No respiratory distress Cardiovascular Exam: regular rate/rhythm, normal heart sounds, normal peripheral pulses, capillary refill <2 sec Gastrointestinal/Abdomen Exam: soft, normal bowel sounds, No tenderness, No mass Back Exam: normal inspection, normal range of motion, No CVA tenderness, No vertebral tenderness Extremity Exam: normal inspection, normal range of motion, pelvis stable, other (patient is to keep her lower extremities flexed at the knees but is able to move the lower extremities, no palpable tenderness) Neurologic Exam: alert, oriented x 3, cooperative, normal mood/affect, nml cerebellar function, nml station & gait, sensation nml, No motor deficits Skin Exam: normal color, warm, dry, No rash SpO2 Interpretation: normal (93%) SpO2: 93 - Course Nursing assessment & vital signs reviewed: Yes - Radiology Exams Pelvis X-ray Interpretation: Interpreted by me (x-ray pelvis: No acute fractures old appearing fracture right inferior rami) Ordered Tests: Active Orders 24 hr Category Date Time Status PELVIS (1 OR 2 VIEWS) Stat Exams 03/08/19 21:31 Taken CULTURE,URINE Stat Lab 03/08/19 22:30 Received UA W/RFX UR CULTURE Stat Lab 03/08/19 22:30 Completed Medication Summary Discontinued Medications Generic Name Dose Route Start Last Admin Trade Name Tami PRN Reason Stop Dose Admin Acetaminophen 650 mg 03/08/19 22:26 03/08/19 22:38 Tylenol 325 Mg PO 03/08/19 22:27 650 mg STAT ONE Administration Acetaminophen Confirm 03/08/19 22:31 Tylenol 325 Mg Administered 03/08/19 22:32 Dose 650 mg .ROUTE .STK-MED ONE Ceftriaxone Sodium 1,000 mg 03/08/19 22:48 Rocephin 1000 Mg Inj IM 03/08/19 22:49 STAT ONE Lab/Rad Data: Laboratory Results 03/08/19 Range/Units 22:30 Urine Color YELLOW (YELLOW) Urine Appearance CLOUDY (CLEAR) Urine pH 6.0 (5-6) Ur Specific [place] 1.010 (1.005-1.025) Urine Protein NEGATIVE (Negative) Urine Ketones NEGATIVE (NEGATIVE) Urine Blood SMALL (0-5) Carlos/ul Urine Nitrite POSITIVE (NEGATIVE) Urine Bilirubin NEGATIVE (NEGATIVE) Urine Urobilinogen NEGATIVE (0-1) mg/dL Ur Leukocyte Esterase LARGE (NEGATIVE) Urine WBC (Auto) 51-100 (0-5) /HPF Urine RBC (Auto) 11-15 (0-2) /HPF U Epithel Cells (Auto) NONE (FEW) /HPF Urine Bacteria (Auto) MODERATE (NEGATIVE) /HPF Urine Mucus (Auto) SLIGHT (NEGATIVE) /HPF Urine Culture Reflexed ORDERED SEPARATELY (NO) Urine Glucose NEGATIVE (NEGATIVE) mg/dL - Progress Progress: improved Progress Note: 03/08/19 22:51 83-year-old white female brought by medics with complaint that she slid out of bed at the detention patient states that she wanted somebody to take her to the bathroom but decided to take herself and slipped out of bed landing on her bottom. Patient initially thought to have pain in her right hip, she now states she is not having any pain. Nurse reports on arrival patient was complaining of pain in her right hip. Patient's daughter in law states the patient chronically has UTIs and sometimes will fall or have confusion with these patient with 50-100 white cells per high- power field in her urine. Patient is given Tylenol for pain after catheterization for urine. Patient is stable patient with stable vital signs patient chronically draws up her lower extremities and limited mobility at the detention. X-ray of the pelvis shows no acute fractures there does appear to be an old inferior pubic rami fracture. I do not see any hip fractures. Will go ahead and give patient Rocephin 1 g IM urine cultures have been ordered. Will plan back to the detention on Macrobid 100 mg orally twice a day Tylenol as needed for pain. - Departure Departure Disposition: Home Clinical Impression: Right hip pain Accidental fall Qualifiers: Encounter type: initial encounter Qualified Code(s): W19.XXXA - Unspecified fall, initial encounter UTI (urinary tract infection) Qualifiers: Urinary tract infection type: site unspecified Hematuria presence: without hematuria Qualified Code(s): N39.0 - Urinary tract infection, site not specified Condition: Fair Critical Care Time: No Referrals: CARMEN MELENDEZ [Primary Care Provider] - Instructions: Preventing Falls Additional Instructions: Return home. Tylenol every 4 hours as needed for pain. Macrobid 100 mg orally twice a day for 10 days. Followup with your family . Return for acute distress or for severe symptoms. Prescriptions: Nitrofurantoin Macro 100 mg [Macrobid 100MG Capsule] 100 mg PO BID #20 cap
[2019-03-08] MEDS ORDERED: TYLENOL 325 MG PO ONE (22:26)
[2019-03-08] MEDS ORDERED: TYLENOL 325 MG ONE (22:31)
[2019-03-08 22:40] LABS: Appearance CLOUDY (CLEAR); Bacteria MODERATE /HPF (NEGATIVE); Bilirubin NEGATIVE (NEGATIVE); Blood SMALL Ery/ul (0-5); Glucose NEGATIVE (NEGATIVE); Ketones NEGATIVE (NEGATIVE); Leukocyte Esterase LARGE (NEGATIVE); Mucus SLIGHT /HPF (NEGATIVE); Nitrite POSITIVE (NEGATIVE); Protein,Urine Dip NEGATIVE (Negative); Urobilinogen NEGATIVE mg/dL (0-1); WBC 51-100 /HPF (0-5)
[2019-03-08] MEDS ORDERED: Rocephin 1000 MG INJ IM ONE (22:48)
[2019-03-08] MEDS ORDERED: Rocephin 1000 MG INJ ONE (22:50)
[2019-03-08 22:55] VITALS: O2SAT 93
[2019-03-08] MEDS ORDERED: Macrobid 100MG Capsule PO ONE (23:04)
[2019-03-08] MEDS ORDERED: Macrobid 100MG Capsule ONE (23:08)
[2019-03-08 23:11] VITALS: BP 152/80; PULSE 85
--- NOTE | 2019-03-09 09:26 | XRAY ---
Indication: Pelvic pain following injury. Comparison: December 26, 2017. Single AP pelvis demonstrates left leg flexed/adducted, limiting the study. Stable osteopenia and lower lumbar degenerative spondylosis. No other bony, articular, or soft tissue abnormalities. CT may yield further information if there remains further clinical concern.
== END 2019-03-08 23:18 ==
LOC: ED 20:53
DX: M25.551 Pain in right hip (principal); N39.0 Urinary tract infection, site not specified; W06.XXXA Fall from bed, initial encounter; Y92.122 Bedroom in nursing home as the place of occurrence of the external cause; I10 Essential (primary) hypertension; M19.90 Unspecified osteoarthritis, unspecified site; J44.9 Chronic obstructive pulmonary disease, unspecified; E78.5 Hyperlipidemia, unspecified; F41.9 Anxiety disorder, unspecified; F03.90 Unspecified dementia, unspecified severity, without behavioral disturbance, psychotic disturbance, mood disturbance, and anxiety; E78.00 Pure hypercholesterolemia, unspecified; Z79.899 Other long term (current) drug therapy; Z87.891 Personal history of nicotine dependence
CPT/HCPCS: 72170; 81001; 87077; 87086; 87186; 96372; 99284; J0696; A9270-GY

== ENCOUNTER 2019-10-31 17:07 | Observation (INO) | payer MEDICARE, OTHER ==
[2019-10-31] MEDS ORDERED: Zofran 4 MG/2 ML VIAL IV PRN (17:13)
[2019-10-31] MEDS ORDERED: Sodium Chloride 0.9% 500 ML 500 ML IV SCH (17:30)
[2019-10-31] MEDS: Sodium Chloride 0.9% 1000 ML 1,000 ML IV SCH (18:01)
[2019-10-31] MEDS: Tamiflu 75MG Capsule PO SCH (18:01)
[2019-10-31 18:43] LABS: Hematocrit 39.5 % (35-47); Hemoglobin 12.3 gm/dl (12.0-16.0); Mean Cell Volume 83.3 fl (78-100); Mean Corpuscular Hemoglobin 25.9 pg (26-32); Mean Corpuscular Hgb Concent. 31.1 g/dl (32-36); Mean Platelet Volume 9.5 fl (6-9.5); Platelet Count 180 K/mm3 (150-450); Red Blood Count 4.74 M/mm3 (4.1-5.4); Red Cell Distribution Width 16.6 % (11.5-14.0); White Blood Count 6.3 K/mm3 (4.0-10.5)
[2019-10-31 18:55] LABS: ALBUMIN 3.4 g/dL (3.5-5.0); ALKALINE PHOSPHATASE 68 U/L (38-126); ANION GAP 11.3 MEQ/L (5-15); BLOOD UREA NITROGEN 28 mg/dL (7-17); CHLORIDE 110 mmol/L (98-107); Calcium 8.5 mg/dL (8.4-10.2); Carbon Dioxide 25 mmol/L (22-30); Creatinine 1 0.79 mg/dL (0.52-1.04); Glucose 85 mg/dL (74-106); Potassium 3.6 mmol/L (3.5-5.1); SGOT/AST 31 U/L (14-36); SGPT/ALT 9 U/L (0-35); SODIUM 142 mmol/L (137-145); Total Protein 7.2 g/dL (6.3-8.2)
[2019-10-31 19:17] LABS: Appearance CLOUDY (CLEAR); Bacteria PACKED /HPF (NEGATIVE); Bilirubin NEGATIVE (NEGATIVE); Blood MODERATE Ery/ul (0-5); Epithelial Cells RARE /HPF (FEW); Glucose NEGATIVE (NEGATIVE); Ketones SMALL (NEGATIVE); Leukocyte Esterase LARGE (NEGATIVE); Mucus MANY /HPF (NEGATIVE); Nitrite NEGATIVE (NEGATIVE); Protein,Urine Dip 30 (Negative); Specific Gravity 1.021 (1.005-1.025); Urobilinogen NEGATIVE mg/dL (0-1); WBC >100 /HPF (0-5)
[2019-10-31] MEDS ORDERED: TYLENOL EXTRA STRENGTH 500 MG PO PRN (20:54)
[2019-10-31] MEDS ORDERED: Colace 100 MG PO PRN (20:55)
[2019-10-31] MEDS ORDERED: AMITIZA PO PRN (20:57)
[2019-10-31] MEDS ORDERED: MILK OF MAGNESIA 30 ML PO PRN (20:57)
[2019-10-31] MEDS: NORVASC 5 MG PO ONE ×2 (23:18→23:30)
[2019-10-31] MEDS: Toprol-Xl 25MG Tablets PO ONE ×2 (23:19→23:30)
[2019-10-31] MEDS: Zocor 10MG PO ONE ×2 (23:19→23:30)
[2019-10-31] MEDS: Seroquel 25 MG PO ONE ×2 (23:19→23:30)
[2019-10-31] MEDS: Ditropan 5 MG PO ONE ×2 (23:19→23:29)
[2019-11-01] MEDS: TYLENOL 325 MG PO PRN (03:45)
[2019-11-01] MEDS: Sodium Chloride 0.9% 1000 ML 1,000 ML IV SCH ×2 (04:32→18:44)
[2019-11-01 05:59] LABS: Absolute Neutrophil Ct (ANC) 3.84 (1.4-6.9); BASOPHIL % 0.3 % (0.0-0.4); Basophil (Absolute #) 0.02 (0-0.4); Eosinophil % 2.8 % (0.00-5.0); Eosinophil (Absolute #) 0.16 (0-0.5); Hematocrit 40.2 % (35-47); Hemoglobin 12.6 gm/dl (12.0-16.0); Lymphocyte (Absolute #) 1.38 (1.0-4.6); Lymphocytes % 23.9 % (24.0-44.0); Mean Cell Volume 83.4 fl (78-100); Mean Corpuscular Hemoglobin 26.1 pg (26-32); Mean Corpuscular Hgb Concent. 31.3 g/dl (32-36); Mean Platelet Volume 10.3 fl (6-9.5); Monocyte (Absolute #) 0.37 (0.0-1.3); Monocytes % 6.4 % (0.0-12.0); Neutrophil % 66.6 % (36.0-66.0); Platelet Count 186 K/mm3 (150-450); Red Blood Count 4.82 M/mm3 (4.1-5.4); Red Cell Distribution Width 16.7 % (11.5-14.0); White Blood Count 5.8 K/mm3 (4.0-10.5)
[2019-11-01 06:09] LABS: ANION GAP 14.8 MEQ/L (5-15); BLOOD UREA NITROGEN 25 mg/dL (7-17); CHLORIDE 110 mmol/L (98-107); Calcium 8.5 mg/dL (8.4-10.2); Carbon Dioxide 23 mmol/L (22-30); Creatinine 1 0.72 mg/dL (0.52-1.04); Glucose 72 mg/dL (74-106); Potassium 3.6 mmol/L (3.5-5.1); SODIUM 143 mmol/L (137-145)
--- NOTE | 2019-11-01 08:20 | PCM.HP ---
History of Present Illness - Chief Complaint Chief Complaint: Influenza, Dehydration History of Present Illness: is a 83 year old female pt with dementia, depression, chronic diarrhea who was admitted directly from [facility] by Dr. Hernández yesterday with influenza. Pt is not oriented. Does say she doesn't feel well and it hurts when she coughs. Per staff she was sleepy until about 3 pm yesterday. Was started on tamiflu and rocephin here. - Review of Systems All Other Systems: Unable due to dementia Medications & Allergies Home Medications: Home Medication List Calcium Carbonate/Vitamin D3 [Calcium 600 + Vit D Tablet] 1 each PO DAILY [History Confirmed 10/31/19] Docusate Sodium 100 mg [Colace 100 MG] 100 mg PO BID PRN PRN 07/30/17 [ History Confirmed 10/31/19] L. Acidophilus/Pectin, [place] [Acidophilus Probiotic Capsule] 1 each PO DAILY [History Confirmed 10/31/19] Fludrocortisone Acetate 0.1 mg PO DAILY 12/25/17 [History Confirmed 10/31/19] Naproxen Sodium 220 mg [Aleve 220 MG] 220 mg PO BID 12/25/17 [History Confirmed 10/31/19] Amlodipine Besylate 5 mg [Norvasc 5 mg] 2.5 mg PO BID tablet 12/27/17 [ Rx Confirmed 10/31/19] Ferrous Sulfate 220 mg/5 ml [Ferrous Sulfate (IRON) 220 MG/5 ML] 220 mg PO DIRECTIONS UNKNOWN 03/08/19 [History Confirmed 10/31/19] Multivitamin [Daily Multivitamin] 1 tab PO DAILY 03/08/19 [History Confirmed ] Oxybutynin Chloride 2.5 mg PO BID 03/08/19 [History Confirmed 10/31/19] PANTOPRAZOLE 40 mg Tablet [Protonix 40MG Tablet] 40 mg PO DAILY 03/08/19 [ History Confirmed 10/31/19] Acetaminophen 500 mg [Tylenol Extra Strength 500 mg] 500 mg PO Q6HPRN PRN 10/31/19 [History Confirmed 10/31/19] Lubiprostone [Amitiza] 24 mcg PO DAILY PRN 10/31/19 [History Confirmed 10/31/19] Mag Hydrox/Aluminum Hyd/Simeth [Mylanta Maximum Strength Liq] 355 ml PO Q4HPRN PRN 10/31/19 [History Confirmed 10/31/19] Magnesium Hydroxide 30 ml [Milk of Magnesia 30 ml] 30 ml PO Q4HPRN PRN [History Confirmed 10/31/19] Metoprolol Succinate 25 mg Xl* [Toprol-Xl 25MG Tablets] 12.5 mg PO BID [History Confirmed 10/31/19] Mirtazapine 7.5 mg PO DAILY 10/31/19 [History Confirmed 10/31/19] Polyethylene Glycol 3350 17 gm [Miralax Powder 17GM PACKET] 17 gm PO DAILY PRN 10/31/19 [History Confirmed 10/31/19] Quetiapine Fumarate 50 mg PO BID 10/31/19 [History Confirmed 10/31/19] Sennosides [Senna Laxative] 8.6 mg PO DAILY PRN 10/31/19 [History Confirmed ] Simvastatin 10 mg [Zocor 10MG] 10 mg PO HS 10/31/19 [History Confirmed 10/31] Triamterene/Hydrochlorothiazid [Triamterene-Hctz 37.5-25 mg Tb] 1 tablet PO UD 10/31/19 [History Confirmed 10/31/19] Allergies/Adverse Reactions: Allergies Allergy/AdvReac Type Severity Reaction Status Date / Time Sulfa (Sulfonamide Allergy Mild Verified 10/31/19 18:42 Antibiotics) sulfamethoxazole Allergy Mild Verified 10/31/19 18:42 [From Bactrim] tetracycline Allergy Mild Verified 10/31/19 18:42 trimethoprim [From Bactrim] Allergy Mild Verified 10/31/19 18:42 amoxicillin Allergy Vomiting Verified 10/31/19 18:42 azithromycin Allergy UNKWON Verified 10/31/19 18:42 codeine Allergy UNSURE Verified 10/31/19 18:42 erythromycin base Allergy Verified 10/31/19 18:42 - Past Medical History Past Medical History: Yes Neurological History: No Pertinent History, Dementia ENT History: Cataracts Cardiac History: High Cholesterol, Hypertension Respiratory History: COPD, Other Endocrine Medical History: Other Musculoskelatal History: Arthritis GI Medical History: Diverticulosis, GERD, Irritable Bowel History: No Pertinent History Pyscho-Social History: Anxiety Reproductive Disorders: Abnormal Uterine Bleeding, Other Comment: has had cataracts removed, had partial thyroidectomy in 1965 non cancerous and has not had to take meds since, dx with copd but denies sob hx of smoker, has had colonoscopy had diverticulosis, had partial hysterectomy 1985 for heavy bleeding, has area in lung that Dr. Hogan is monitoring and had PET scan to check that area and an area showed up in colon so doing colonoscopy. 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 bladder tuck 2003, colonoscopy 2007, cataracts removed 2007, vericose veins removed 1969. - Social History Smoking Status: Unknown if ever smoked Exposure to second hand smoke: No Alcohol: None Drug Use: none Significant Family History: no pertinent family hx - Physical Exam Vital Signs: Vital Signs - 24 hr Temp Pulse Resp BP Pulse Ox 11/01/19 04:00 97.9 F 88 27 H 145/62 93 L 11/01/19 00:00 97.6 F 75 23 132/58 94 L 10/31/19 22:27 94 L 10/31/19 20:00 98.8 F 67 20 131/59 90 L 10/31/19 18:00 98.8 F 67 20 131/59 90 L 10/31/19 17:47 98.8 F 67 20 131/59 90 L Oxygen-Last 24 hours O2 Percentage 3 Liters = 32% O2 Percentage 3 Liters = 32% O2 Percentage 3 Liters = 32% O2 Percentage 3 Liters = 32% O2 Percentage 3 Liters = 32% General Appearance: mild distress, alert Neurologic Exam: cooperative, disoriented Eye Exam: other (keeps eyes closed although awake) Ears, Nose, Throat Exam: moist mucous membranes Neck Exam: normal inspection, non-tender, No lymphadenopathy Respiratory Exam: normal breath sounds, lungs clear, No crackles/rales, No rhonchi, No wheezing Cardiovascular Exam: regular rate/rhythm, normal heart sounds, No murmur Gastrointestinal/Abdomen Exam: soft, normal bowel sounds, No tenderness, No distention, No mass, No guarding, No rebound Extremity Exam: normal inspection, No pedal edema, No swelling Skin Exam: normal color, warm, dry, No rash Results - Labs Lab/Micro Results: Lab Results-Last 24 Hours 10/31/19 10/31/19 10/31/19 Range/Units 17:50 17:50 17:50 WBC 6.3 (4.0-10.5) K/mm3 RBC 4.74 (4.1-5.4) M/mm3 Hgb 12.3 (12.0-16.0) gm/dl Hct 39.5 (35-47) % MCV 83.3 (78-100) fl MCH 25.9 L (26-32) pg MCHC 31.1 L (32-36) g/dl RDW 16.6 H (11.5-14.0) % Plt Count 180 (150-450) K/mm3 MPV 9.5 (6-9.5) fl Gran % (36.0-66.0) % Eos # (Auto) (0-0.5) Absolute Lymphs (auto) (1.0-4.6) Absolute Monos (auto) (0.0-1.3) Lymphocytes % (24.0-44.0) % Monocytes % (0.0-12.0) % Eosinophils % (0.00-5.0) % Basophils % (0.0-0.4) % Absolute Granulocytes (1.4-6.9) Basophils # (0-0.4) Sodium 142 (137-145) mmol/L Potassium 3.6 (3.5-5.1) mmol/L Chloride 110 H (98-107) mmol/L Carbon Dioxide 25 (22-30) mmol/L Anion Gap 11.3 (5-15) MEQ/L BUN 28 H (7-17) mg/dL Creatinine 0.79 (0.52-1.04) mg/dL Estimated GFR > 60.0 ML/MIN Glucose 85 (74-106) mg/dL Calcium 8.5 (8.4-10.2) mg/dL Total Bilirubin 0.50 (0.2-1.3) mg/dL AST 31 (14-36) U/L ALT 9 (0-35) U/L Alkaline Phosphatase 68 (38-126) U/L Serum Total Protein 7.2 (6.3-8.2) g/dL Albumin 3.4 L (3.5-5.0) g/dL Urine Color [place]AM[place] (YELLOW) Urine Appearance CLOUDY (CLEAR) Urine pH 5.0 (5-6) Ur Specific [place] 1.021 (1.005-1.025) Urine Protein 30 (Negative) Urine Ketones SMALL (NEGATIVE) Urine Blood MODERATE (0-5) Carlos/ul Urine Nitrite NEGATIVE (NEGATIVE) Urine Bilirubin NEGATIVE (NEGATIVE) Urine Urobilinogen NEGATIVE (0-1) mg/dL Ur Leukocyte Esterase LARGE (NEGATIVE) Urine WBC (Auto) >100 (0-5) /HPF Urine RBC (Auto) 6-10 (0-2) /HPF U Epithel Cells (Auto) RARE (FEW) /HPF Urine Bacteria (Auto) PACKED (NEGATIVE) /HPF Urine Mucus (Auto) MANY (NEGATIVE) /HPF Urine Culture Reflexed ORDERED SEPARATELY (NO) Urine Glucose NEGATIVE (NEGATIVE) mg/dL 11/01/19 11/01/19 Range/Units 04:41 04:41 WBC 5.8 (4.0-10.5) K/mm3 RBC 4.82 (4.1-5.4) M/mm3 Hgb 12.6 (12.0-16.0) gm/dl Hct 40.2 (35-47) % MCV 83.4 (78-100) fl MCH 26.1 (26-32) pg MCHC 31.3 L (32-36) g/dl RDW 16.7 H (11.5-14.0) % Plt Count 186 (150-450) K/mm3 MPV 10.3 H (6-9.5) fl Gran % 66.6 H (36.0-66.0) % Eos # (Auto) 0.16 (0-0.5) Absolute Lymphs (auto) 1.38 (1.0-4.6) Absolute Monos (auto) 0.37 (0.0-1.3) Lymphocytes % 23.9 L (24.0-44.0) % Monocytes % 6.4 (0.0-12.0) % Eosinophils % 2.8 (0.00-5.0) % Basophils % 0.3 (0.0-0.4) % Absolute Granulocytes 3.84 (1.4-6.9) Basophils # 0.02 (0-0.4) Sodium 143 (137-145) mmol/L Potassium 3.6 (3.5-5.1) mmol/L Chloride 110 H (98-107) mmol/L Carbon Dioxide 23 (22-30) mmol/L Anion Gap 14.8 (5-15) MEQ/L BUN 25 H (7-17) mg/dL Creatinine 0.72 (0.52-1.04) mg/dL Estimated GFR > 60.0 ML/MIN Glucose 72 L (74-106) mg/dL Calcium 8.5 (8.4-10.2) mg/dL Total Bilirubin (0.2-1.3) mg/dL AST (14-36) U/L ALT (0-35) U/L Alkaline Phosphatase (38-126) U/L Serum Total Protein (6.3-8.2) g/dL Albumin (3.5-5.0) g/dL Urine Color (YELLOW) Urine Appearance (CLEAR) Urine pH (5-6) Ur Specific [place] (1.005-1.025) Urine Protein (Negative) Urine Ketones (NEGATIVE) Urine Blood (0-5) Carlos/ul Urine Nitrite (NEGATIVE) Urine Bilirubin (NEGATIVE) Urine Urobilinogen (0-1) mg/dL Ur Leukocyte Esterase (NEGATIVE) Urine WBC (Auto) (0-5) /HPF Urine RBC (Auto) (0-2) /HPF U Epithel Cells (Auto) (FEW) /HPF Urine Bacteria (Auto) (NEGATIVE) /HPF Urine Mucus (Auto) (NEGATIVE) /HPF Urine Culture Reflexed (NO) Urine Glucose (NEGATIVE) mg/dL - Radiology Impressions Radiology Exams & Impressions: Radiology Procedures Category Date Time Status CHEST 1 VIEW (PORTABLE) Routine Exams 10/31/19 18:00 Taken - Other Procedures and Tests Respiratory Therapy 10/31/19 22:25 Oxygen Nasal Cannula 3 lpm Assessment/Plan (1) Influenza A Current Visit: Yes Status: Acute Assessment & Plan: on tamiflu and rocephin. CXR final read is pending. Code(s): J10.1 - FLU DUE TO OTH IDENT INFLUENZA VIRUS W OTH RESP MANIFEST (2) Anxiety Current Visit: No Status: Chronic Code(s): F41.9 - ANXIETY DISORDER, UNSPECIFIED (3) Dementia Current Visit: No Status: Chronic Code(s): F03.90 - UNSPECIFIED DEMENTIA WITHOUT BEHAVIORAL DISTURBANCE (4) Falls frequently Current Visit: No Status: Chronic Code(s): R29.6 - REPEATED FALLS
--- NOTE | 2019-11-01 08:39 | XRAY ---
Indication: Unresponsive, influenza, and dehydration. Comparison: 2017. Portable chest again hyperinflated with chronic lung markings and left upper lobe calcified granuloma. Heart is not enlarged. Bony thorax intact again with mild osteopenia, mild dextroscoliosis, and degenerative changes. Impression: Nonacute hyperinflated chest with chronic features.
[2019-11-01] MEDS ORDERED: SENOKOT 8.6 MG PO PRN (09:21)
[2019-11-01] MEDS ORDERED: MAALOX ES 30 ML UNIT DOSE PO PRN (09:21)
[2019-11-01] MEDS ORDERED: Maxzide 25MG PO SCH (09:30)
[2019-11-01] MEDS ORDERED: FLUDROCORTISONE ACETATE 0.1 MG PO SCH (10:00)
[2019-11-01] MEDS ORDERED: MEDICATION INTERVENTION MC SCH (10:00)
[2019-11-01] MEDS ORDERED: [UNRECOGNIZED DRUG - OTHER] PO SCH (10:00)
[2019-11-01] MEDS ORDERED: NAPROXEN SODIUM 220 MG PO SCH (10:00)
[2019-11-01] MEDS ORDERED: Maxzide-25MG Tablet PO SCH (10:00)
[2019-11-01] MEDS: Miralax Powder 17GM PACKET PO PRN (10:19)
[2019-11-01] MEDS: REMERON 30 MG PO SCH (10:20)
[2019-11-01] MEDS: Naprosyn 500 MG PO SCH ×2 (10:22→22:46)
[2019-11-01] MEDS: Ditropan 5 MG PO SCH ×2 (10:23→22:45)
[2019-11-01] MEDS: Tamiflu 75MG Capsule PO SCH ×2 (10:25→22:46)
[2019-11-01] MEDS: NORVASC 5 MG PO SCH ×2 (10:25→22:47)
[2019-11-01] MEDS: Acidophilus TABLET PO SCH (10:25)
[2019-11-01] MEDS: Toprol-Xl 25MG Tablets PO SCH ×2 (10:26→22:46)
[2019-11-01] MEDS: Protonix 40MG Tablet PO SCH (10:27)
[2019-11-01] MEDS: Seroquel 100 MG PO SCH ×2 (10:27→22:48)
[2019-11-01] MEDS: ROCEPHIN 1 Gm-D5w 50 ml Bag** 1 G/50 ML IVPB IV SCH (10:27)
[2019-11-01] MEDS ORDERED: Zocor 10MG PO SCH (22:00)
[2019-11-02] MEDS: Sodium Chloride 0.9% 1000 ML 1,000 ML IV SCH (05:44)
[2019-11-02] MEDS: TYLENOL 325 MG PO PRN (05:44)
[2019-11-02 06:25] LABS: Absolute Neutrophil Ct (ANC) 2.56 (1.4-6.9); BASOPHIL % 0.2 % (0.0-0.4); Basophil (Absolute #) 0.01 (0-0.4); Eosinophil % 6.7 % (0.00-5.0); Eosinophil (Absolute #) 0.33 (0-0.5); Hematocrit 38.6 % (35-47); Hemoglobin 12.4 gm/dl (12.0-16.0); Lymphocyte (Absolute #) 1.69 (1.0-4.6); Lymphocytes % 34.3 % (24.0-44.0); Mean Cell Volume 81.4 fl (78-100); Mean Corpuscular Hemoglobin 26.2 pg (26-32); Mean Corpuscular Hgb Concent. 32.1 g/dl (32-36); Mean Platelet Volume 10.7 fl (6-9.5); Monocyte (Absolute #) 0.34 (0.0-1.3); Monocytes % 6.9 % (0.0-12.0); Neutrophil % 51.9 % (36.0-66.0); Platelet Count 179 K/mm3 (150-450); Red Blood Count 4.74 M/mm3 (4.1-5.4); Red Cell Distribution Width 16.1 % (11.5-14.0); White Blood Count 4.9 K/mm3 (4.0-10.5)
[2019-11-02 06:35] LABS: ANION GAP 11.6 MEQ/L (5-15); BLOOD UREA NITROGEN 13 mg/dL (7-17); CHLORIDE 108 mmol/L (98-107); Calcium 8.3 mg/dL (8.4-10.2); Carbon Dioxide 22 mmol/L (22-30); Creatinine 1 0.57 mg/dL (0.52-1.04); Glucose 81 mg/dL (74-106); Potassium 3.6 mmol/L (3.5-5.1); SODIUM 139 mmol/L (137-145)
[2019-11-02] MEDS: REMERON 30 MG PO SCH (10:07)
[2019-11-02] MEDS: Miralax Powder 17GM PACKET PO PRN (10:07)
[2019-11-02] MEDS: ROCEPHIN 1 Gm-D5w 50 ml Bag** 1 G/50 ML IVPB IV SCH (10:07)
[2019-11-02] MEDS: Seroquel 100 MG PO SCH (10:08)
[2019-11-02] MEDS: Naprosyn 500 MG PO SCH (10:09)
[2019-11-02] MEDS: Protonix 40MG Tablet PO SCH (10:09)
[2019-11-02] MEDS: NORVASC 5 MG PO SCH (10:09)
[2019-11-02] MEDS: Acidophilus TABLET PO SCH (10:10)
[2019-11-02] MEDS: Toprol-Xl 25MG Tablets PO SCH (10:10)
[2019-11-02] MEDS: Ditropan 5 MG PO SCH (10:11)
[2019-11-02] MEDS: Tamiflu 75MG Capsule PO SCH (10:11)
--- NOTE | 2019-11-02 12:42 | PCM.DCORD ---
- Discharge Discharge Date: 11/02/19 Disposition: DC TO ANY "OTHER" LONG-TERM Condition: Stable Prescriptions: New Cefdinir 300 mg PO BID #10 capsule Oseltamivir 75 mg [Tamiflu 75MG Capsule] 75 mg PO BID #6 cap Continue Docusate Sodium 100 mg [Colace 100 MG] 100 mg PO BID PRN PRN PRN Reason: Constipation L. Acidophilus/Pectin, [place] [Acidophilus Probiotic Capsule] 1 each PO DAILY Calcium Carbonate/Vitamin D3 [Calcium 600 + Vit D Tablet] 1 each PO DAILY Fludrocortisone Acetate 0.1 mg PO DAILY Naproxen Sodium 220 mg [Aleve 220 MG] 220 mg PO BID Amlodipine Besylate 5 mg [Norvasc 5 mg] 2.5 mg PO BID tablet Oxybutynin Chloride 2.5 mg PO BID PANTOPRAZOLE 40 mg Tablet [Protonix 40MG Tablet] 40 mg PO DAILY Multivitamin [Daily Multivitamin] 1 tab PO DAILY Ferrous Sulfate 220 mg/5 ml [Ferrous Sulfate (IRON) 220 MG/5 ML] 220 mg PO DIRECTIONS UNKNOWN Quetiapine Fumarate 50 mg PO BID Mirtazapine 7.5 mg PO DAILY Acetaminophen 500 mg [Tylenol Extra Strength 500 mg] 500 mg PO Q6HPRN PRN PRN Reason: pain/fever Magnesium Hydroxide 30 ml [Milk of Magnesia 30 ml] 30 ml PO Q4HPRN PRN PRN Reason: Constipation Mag Hydrox/Aluminum Hyd/Simeth [Mylanta Maximum Strength Liq] 355 ml PO Q4HPRN PRN PRN Reason: Indigestion Lubiprostone [Amitiza] 24 mcg PO DAILY PRN PRN Reason: Constipation Triamterene/Hydrochlorothiazid [Triamterene-Hctz 37.5-25 mg Tb] 1 tablet PO UD Simvastatin 10 mg [Zocor 10MG] 10 mg PO HS Sennosides [Senna Laxative] 8.6 mg PO DAILY PRN PRN Reason: Constipation Polyethylene Glycol 3350 17 gm [Miralax Powder 17GM PACKET] 17 gm PO DAILY PRN PRN Reason: Constipation Metoprolol Succinate 25 mg Xl* [Toprol-Xl 25MG Tablets] 12.5 mg PO BID Additional Instructions: Oxygen 3 Liters by nasal cannula for hypoxia. Contact isolation for Influenza A per protocol at facility. Follow up with: CHANDANA ENCARNACION MD [Primary Care Provider] - 1 Week
[2019-11-02 13:58] VITALS: BP 130/61; PULSE 80; O2SAT 94
--- NOTE | 2019-11-04 07:59 | DS ---
DISCHARGE DIAGNOSES: 1) INFLUENZA A. 2) URINARY TRACT INFECTION. 3) DEMENTIA. DISCHARGE PHYSICAL EXAMINATION: VITALS: Temperature current 97.4F, temperature max 98.4F, heart rate 80, respiratory rate 18, blood pressure 130/61, weight 42.2 kg. Oxygen saturation 94% on 3 liters. GENERAL: The patient was sitting up in her Crystal chair in no acute distress. She is often confused and would answer questions with questions. She is very thin. CVS: Her heart had a regular rate and rhythm. No murmurs, gallops or rubs. CHEST: Clear to auscultation bilaterally. No crackles or wheezes. ABDOMEN: Soft. EXTREMITIES: No clubbing, cyanosis or edema. HOSPITAL COURSE: 1) INFLUENZA A: She was started on Tamiflu 75 mg p.o. b.i.d. and I have written a prescription for her to finish out a five day course of this. She is on oxygen 3 liters by nasal cannula. They report that she is on oxygen at the intermediate as well so she can go back to continue using oxygen at the intermediate. 2) URINARY TRACT INFECTION: Her urine culture grew Escherichia coli which was susceptible to ceftriaxone which she has been on, to complete a course of Cefdinir. She is going back to [facility]. 3) DEMENTIA: Seems to be at her baseline. Her daughter was agreeable with her going back to [place]. DISCHARGE MEDICATIONS: Please see the discharge order. DISPOSITION: The patient was discharged back to [facility]. Her Arnold was to be removed before she left.
== END 2019-11-02 14:18 ==
LOC: MED SURG 17:32
PROVIDERS: ADMIT Family Medicine; ATTEND Family Medicine
DX: J09.X2 Influenza due to identified novel influenza A virus with other respiratory manifestations (principal); N39.0 Urinary tract infection, site not specified; F03.90 Unspecified dementia, unspecified severity, without behavioral disturbance, psychotic disturbance, mood disturbance, and anxiety; E86.0 Dehydration; K52.9 Noninfective gastroenteritis and colitis, unspecified; I10 Essential (primary) hypertension; E78.00 Pure hypercholesterolemia, unspecified; Z79.899 Other long term (current) drug therapy; F41.9 Anxiety disorder, unspecified; R29.6 Repeated falls
CPT/HCPCS: 36415; 71045; 80048; 80053; 81001; 85025; 85027; 87040; 87077; 87086; 87186; 93268; 94760; 94762; G0378; J0696; A9270-GY